=== PATIENT | male | born 1970 | race Caucasian/White ===

== ENCOUNTER 2018-09-12 09:27 | Inpatient (IN) ==
[2018-09-12] MEDS ORDERED: ALBUTEROL SULFATE 2.5 MG/3 ML NEBULIZER NEB PRN (10:11)
[2018-09-12] MEDS ORDERED: MAGNESIUM HYDROXIDE 30 ML ORAL.SUSP PO PRN (10:11)
[2018-09-12] MEDS ORDERED: ONDANSETRON 4 MG/2 ML VIAL IV PRN (10:11)
[2018-09-12] MEDS ORDERED: ACETAMINOPHEN 325 MG TABLET PO PRN (10:11)
[2018-09-12] MEDS ORDERED: NALOXONE HCL 0.4 MG/ML VIAL IV PRN (10:11)
--- NOTE | 2018-09-12 10:30 | Behavioral Health Consult ---
History of Present Illness Patient information: Note initiated : 09/12/18 at 10:28 am Service Date, if different from initiated Date: [] Patient: Tayo Ring 48 y/o M admitted on 09/12/18 for Inpatient Detox. Chief Complaint: [] Requesting Physician: Vikki Orozco Review of System Constitutional: no anorexia, no chills, no fatigue, no fever(s), no frequent falls, no headache(s), no night sweats, no weakness, no weight gain, no weight loss Nose, mouth and throat: no abnormal hearing, no change in voice, no dental pain, no dizziness, no epistaxis, no headache(s), no hoarseness, no nasal congestion, no neck pain, no odynophagia, no sinus pain, no sore throat, no vertigo Cardiovascular: no chest pain, no diaphoresis, no dyspnea, no leg edema, no palpatations, no pedal edema, no syncope Respiratory: no cough, no dyspnea, no hemoptysis, no wheezing Gastrointestinal: no abdominal pain, no bloating, no change in bowel habits, no coffee ground emesis, no constipation, no diarrhea, no heartburn, no hematemesis, no hematochezia, no nausea, no vomiting Genitourinary: no dysuria, no flank pain, no urinary frequency Musculoskeletal: no abnormal gait, no arthralgias, no back pain, no joint swelling, no myalgias, no numbness, no radiating pain into limb, no stiffness Integumentary: no changing lesions, no erythema, no lesions, no photosensitivity, no rash, no sores, no swelling Neurological: no abnormal gait, no abnormal hearing, no abnormal movements, no abnormal speech, no behavioral changes, no confusion, no focal weakness, no frequent falls, no headache(s), no memory loss, no numbness, no paresthesias, no syncope, no tremor(s), no vertigo, no weakness, no other visual disturbances Psychiatric: no abnormal sleep pattern, no anxiety, no auditory hallucinations, no change in appetite, no confusion, no depression, no hallucinations, no homicidal ideation, no memory loss, no suicidal ideation, no visual hallucinations, no tactile Endocrine: no cold intolerance, no polydipsia, no polyphagia Hematologic/Lymphatic: no easy bleeding, no easy bruising, no lymphadenopathy Allergic/Immunologic: no tongue swelling, no throat swelling, no lip swelling Past History Past medical history: Medical History (Last Updated 09/07/18 @ 13:34 by Marimar Bennett LPN) Gastritis, alcoholic (Chronic) Esophagitis (Chronic) Depression (Chronic) Alcohol abuse (Chronic) ADHD (Acute) Hypertension (Acute) Kidney problem (Acute) Panic disorder (Acute) Past surgical history: Past Surgical History No pertinent past surgical history (Acute) Past family history: Family History Grandfather CVA (cerebral vascular accident) Colon cancer Grandmother CVA (cerebral vascular accident) Mother Melanoma Hypertension Family/Other Breast cancer Other No pertinent family history Past social history: Social History (Last Updated 09/12/18 @ 09:14 by Carey Buckner DO) No Social History Section defined Medications and Allergies Home Medications Medication Instructions Recorded Confirmed Type omeprazole 20 mg capsule,delayed 20 mg PO QDAY #90 cap 09/29/16 09/12/18 Rx release Allergies Allergy/AdvReac Type Severity Reaction Status Date / Time No Known Drug Allergies Allergy Verified 09/12/18 08:13 Physical Examination Vital signs: Temp Pulse Resp BP Pulse Ox 98.8 F 104 H 15 162/110 95 09/12/18 09:27 09/12/18 09:27 09/12/18 09:27 09/12/18 09:27 09/12/18 09:27
--- NOTE | 2018-09-12 10:50 | Behavioral Health Consult ---
History of Present Illness Patient information: Note initiated : 09/12/18 at 10:31 am Service Date, if different from initiated Date: [] Patient: Tayo Ring 48 y/o M admitted on 09/12/18 for Inpatient Detox. Chief Complaint: [] Requesting Physician: Vikki Orozco History of present illness: Patient is a 48-year-old white male who reports a history of alcohol abuse since he was 12 years old. Patient recalls that he experienced immediate euphoria when he initially started drinking alcohol. 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 He reports drinking alcohol "pretty steady the rest of my life". He tried to control his drinking when he was but was not successful. Reports that eventually his left him after 24 years of marriage due to patient's alcohol use. For the last several years patient drinks 8-10 servings (unknown quantity) of vodka and black velvet. His last drink was at 9 PM last night. Patient reports having between 8-10 drinks of liquor last night unspecified amount. Patient's breathalyzer 0.140 this morning. Patient has entered treatment twice in the past. He recalls a 21-day residential treatment at [facility] in [place] but was not able to maintain sobriety after completion. The second time was a 2 months treatment in [place] in February 2018, and was also unsuccessful in maintaining sobriety. 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 He reports waking up in the middle of the night and needs him to drink alcohol as he wakes up in the middle of the night starting to feel withdrawal, anxiety, tremors. Once he starts drinking alcohol he is unable to control his use and is unable to stop until he is completely inebriated. Patient reports experiencing tremors and increase in anxiety if he attempts to stop alcohol on his own. Patient admits to history of benzodiazepine abuse. He states that recently her friend gave him her Ativan, unspecified amount, about the months ago 15 tablets that patient has been taking another to assist with his increased anxiety. He states he will drink alcohol on top of the Ativan. He denies use in the last 2 to 3 weeks. Admits to history of THC use, 3 to 4 days a week unspecified amount. Reports that in his 30s he used THC on a daily basis. Additionally reports history of smoking cigarettes since age 12, one ppd. Reports that he discontinued use of c igarettes and has been chewing over a can of tobacco a day. Denies use of methamphetamines. Admits to history of snorting unspecified amount of cocaine over the years. Reports his last use of cocaine was on 03/14/2019, "good [place] cocaine". Denies use of opioids including heroine, methadone or Suboxone. Denies use of LSD, PCP or MDMA. To occasional use of mushrooms over 20 years ago and denies recent use. Denies history of an overdose. Denies history of treatment with Vivitrol or naltrexone. Denies past history of pancreatitis, DTs or seizures. Admits to history of alcoholic hepatitis. Admits to history of blackouts. Denies history of trauma or abuse. Denies past psychiatric history. Denies any family history of alcohol or substance use disorder. Patient is he has a history of 2 legal problems secondary to his alcohol use, a DUI and the reckless driving charge. There is no legal problems pending at this time. Patient has requested treatment for alcohol use disorder and has agreed to be admitted for the purpose of alcohol withdrawal. Review of System Constitutional: no anorexia, no chills, no fatigue, no fever(s), no frequent falls, no headache(s), no night sweats, no weakness, no weight gain, no weight loss Nose, mouth and throat: no abnormal hearing, no change in voice, no dental pain, no dizziness, no epistaxis, no headache(s), no hoarseness, no nasal congestion, no neck pain, no odynophagia, no sinus pain, no sore throat, no vertigo Cardiovascular: no chest pain, no diaphoresis, no dyspnea, no leg edema, no palpatations, no pedal edema, no syncope Respiratory: no cough, no dyspnea, no hemoptysis, no wheezing Gastrointestinal: no abdominal pain, no bloating, no change in bowel habits, no coffee ground emesis, no constipation, no diarrhea, no heartburn, no hematemesis, no hematochezia, no nausea, no vomiting Genitourinary: no dysuria, no flank pain, no urinary frequency Musculoskeletal: no abnormal gait, no arthralgias, no back pain, no joint swelling, no myalgias, no numbness, no radiating pain into limb, no stiffness Integumentary: no changing lesions, no erythema, no lesions, no photosensitivity, no rash, no sores, no swelling Neurological: no abnormal gait, no abnormal hearing, no abnormal movements, no abnormal speech, no behavioral changes, no confusion, no focal weakness, no frequent falls, no headache(s), no memory loss, no numbness, no paresthesias, no syncope, no tremor(s), no vertigo, no weakness, no other visual disturbances Psychiatric: no abnormal sleep pattern, no anxiety, no auditory hallucinations, no change in appetite, no confusion, no depression, no hallucinations, no homicidal ideation, no memory loss, no suicidal ideation, no visual halluc inations, no tactile Endocrine: no cold intolerance, no polydipsia, no polyphagia Hematologic/Lymphatic: no easy bleeding, no easy bruising, no lymphadenopathy Allergic/Immunologic: no tongue swelling, no throat swelling, no lip swelling Past History Past medical history: Medical History (Last Updated 09/07/18 @ 13:34 by Marimar Bennett LPN) Gastritis, alcoholic (Chronic) Esophagitis (Chronic) Depression (Chronic) Alcohol abuse (Chronic) ADHD (Acute) Hypertension (Acute) Kidney problem (Acute) Panic disorder (Acute) Past surgical history: Past Surgical History No pertinent past surgical history (Acute) Past family history: Family History Grandfather CVA (cerebral vascular accident) Colon cancer Grandmother CVA (cerebral vascular accident) Mother Melanoma Hypertension Family/Other Breast cancer Other No pertinent family history Past social history: Social History (Last Updated 09/12/18 @ 09:14 by Carey Buckner DO) No Social History Section defined Medications and Allergies Home Medications Medication Instructions Recorded Confirmed Type omeprazole 20 mg capsule,delayed 20 mg PO QDAY #90 cap 09/29/16 09/12/18 Rx release Allergies Allergy/AdvReac Type Severity Reaction Status Date / Time No Known Drug Allergies Allergy Verified 09/12/18 08:13 Physical Examination Vital signs: Temp Pulse Resp BP Pulse Ox 98.8 F 104 H 15 162/110 95 09/12/18 09:27 09/12/18 09:27 09/12/18 09:27 09/12/18 09:27 09/12/18 09:27 General appearance: no acute distress, alert Eyes pulmonary: nonicteric ENT: oropharynx moist Neck: supple, no lymphadenopathy, no JVD Effort: normal Auscultation: bilateral: clear Percussion: bilateral: not dull Tactile fremitus: bilateral: normal Cardiovascular: regular rate and rhythm Gastrointestinal: normoactive bowel sounds, non-tender, non-distended Integumentary: normal Extremities: no cyanosis, no edema, pulses normal Musculoskeletal: no deformities, ROM normal Gait: normal gait normal mental status, non-focal exam, pupils equal and round, CN II-XII normal, motor strength normal and symmetric mood appropriate, affect normal CIWA 0 CINA 0 Results - Laboratory Findings Alcohol Toxicology: Breathalyzer 0.140 Assessment and Plan - Narrative A/P Narrative: Patient has been admitted to the hospital by Dr. Orozco. We will obtain lab work CBC CMP TSH. Patient will be started on thiamine as well as multivitamin. Patient will be placed on Valium protocol as needed CIWA score greater than 6. Patient will be closely monitored. Anticipate outpatient follow-up after completion of inpatient detox. Discussed risk recommendations for AA as well as IOP and individual counseling.
[2018-09-12] MEDS: NICOTINE 14 MG PATCH TOPICAL SCH (11:00)
--- NOTE | 2018-09-12 11:24 | Internal Med History&Physical ---
Medical - H&P: [facility] Patient information: Note initiated : 09/12/18 at 11:14 am Service Date, if different from initiated Date: [] Patient: Tayo Ring 48 y/o M admitted on 09/12/18 for Inpatient Detox. Chief Complaint: [] History of present illness: Mr. Ring is a 48 year old M with history of GERD, heavy alcohol use, presents to the hospital today, for elective alcohol detox. He has been through detox program before, and does have alcohol withdrawal with shakes. No h/o seizures. He has been followed by an credit card specialist who has requested his admission. Patient had his last drink last night at 9 PM, heavy alcohol, usually drinks 8 drinks a day according to him. No drinks this morning. He denies any headache chest pain shortness of breath, denies any abdominal pain denies any bowel bladder complaints denies any fever chills acute joint pain. Does have chronic back pain. All systems: reviewed and no additional remarkable complaints except as stated (as per HPI rest neg) Medical - H&P: PMH Medical history: Medical History (Last Updated 09/07/18 @ 13:34 by Marimar Bennett LPN) Gastritis, alcoholic (Chronic) Esophagitis (Chronic) Depression (Chronic) Alcohol abuse (Chronic) ADHD (Acute) Hypertension (Acute) Kidney problem (Acute) Panic disorder (Acute) Surgical history: Past Surgical History No pertinent past surgical history (Acute) Pertinent family history: Family History Grandfather CVA (cerebral vascular accident) Colon cancer Grandmother CVA (cerebral vascular accident) Mother Melanoma Hypertension Family/Other Breast cancer Other No pertinent family history Medical - H&P: Meds Home Medications Medication Instructions Recorded Confirmed Type omeprazole 20 mg capsule,delayed 20 mg PO QDAY #90 cap 09/29/16 09/12/18 Rx release Allergies Allergy/AdvReac Type Severity Reaction Status Date / Time No Known Drug Allergies Allergy Verified 09/12/18 08:13 Medical - H&P: Exam - Constitutional Vitals: Temp Pulse Resp BP Pulse Ox 98.8 F 104 H 15 162/110 95 09/12/18 09:27 09/12/18 09:27 09/12/18 09:27 09/12/18 09:27 09/12/18 09:27 Exam: Constitutional; Afebrile, cooperative, alert, not in distress. Eyes- No icterus, , No periorbital swelling Ears- Ext ear normal, hearing normal to conversation. Neck- Midline trachea, supple Respiratory system: Air Entry equal on both sides, No crackles or wheezing, no rhonchi. CVS- Rate rhythm regular, S1,S2 heard, no gallop, no rub. Abdomen- Soft nontender abdomen, no organomegaly, no tenderness, no guarding or rigidity, PRODUCTION ENGINEER- AOOx3, moving all extremities, no gross focal deficit noted. 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 Smokes marijuana 2-3 times per week. He has completed rehab for alcohol use disorder at [facility] in February 2018. He has been arrested for reckless driving, 1 year ago and DUI, 6 years ago both related to drinking alcohol.
[2018-09-12] MEDS: DIAZEPAM 5 MG TABLET PO PRN ×2 (12:38→18:15)
[2018-09-12] MEDS: 0.9 % SODIUM CHLORIDE 10 ML SYRINGE IV SCH ×2 (12:39→20:34)
[2018-09-12 13:24] LABS: Basophils # (Auto) 0 K/mcL (0.0-0.3); Basophils % (Auto) 0.5 % (0.0-2.0); Eosinophils # (Auto) 0 K/mcL (0.0-0.7); Eosinophils % (Auto) 0.3 % (0.0-7.0); Granulocytes % (Auto) 80.4 % (38.0-78.0); Hematocrit 42.8 % (41.0-55.0); Lymphocytes # (Auto) 0.6 K/mcL (1.5-4.8); Mean Cell Volume 102.8 fL (80.0-100.0); Mean Corpuscular HGB Conc 32.7 g/dL (31.0-36.0); Mean Platelet Volume 7.9 fL (7.4-10.4); Monocytes # (Auto) 0.5 K/mcL (0.1-0.9); Monocytes % (Auto) 8.8 % (1.0-12.0); Platelet Count 227 K/mcL (140-440); RBC 4.16 M/mcL (4.50-5.90); Red Cell Distribution Width 13.8 % (11.5-14.5); WBC 5.9 K/mcL (4.5-11.0)
[2018-09-12 13:38] LABS: Vitamin B12 1121 pg/ml (232-1245)
[2018-09-12 13:46] LABS: ALT/SGPT 36 U/l (0-40); AST/SGOT 94 U/l (0-37); Albumin 4.1 gm/dL (3.2-5.2); Albumin/Globulin Ratio 1.1 (1.0-2.3); Alkaline Phosphatase 115 U/L (39-117); Bilirubin,Total 0.7 mg/dL (0.0-1.0); Blood Urea Nitrogen 7 mg/dl (6-20); Calcium 8.5 mg/dl (8.6-10.4); Carbon Dioxide 26 mmol/L (22-30); Chloride 100 mmol/L (96-108); Globulin 3.9 gm/dL (2.2-3.7); Glomerular Filtration Rate 106; Glucose 100 mg/dL (70-105); Lipase 94 U/L (7-60); Potassium 3.2 mmol/L (3.3-5.1); Sodium 144 mmol/L (133-145); Thyroid Stimulating Hormone 1.07 uIU/ml (0.27-5.01)
[2018-09-12] MEDS ORDERED: POTASSIUM CHLORIDE 20 MEQ PACKET PO ONE (13:55)
[2018-09-12] MEDS: THIAMINE 100 MG TABLET PO SCH ×2 (14:29→20:32)
[2018-09-12] MEDS: HEPARIN 5,000 UNIT/ML VIAL SQ SCH (20:31)
[2018-09-12] MEDS: MIRTAZAPINE 15 MG TABLET PO SCH (20:32)
[2018-09-12] MEDS: MULTIVIT,THER IRON,CA,FA & MIN 1 TABLET PO SCH (20:32)
[2018-09-12] MEDS: GABAPENTIN 300 MG CAPSULE PO SCH (20:32)
[2018-09-13 05:56] LABS: Basophils # (Auto) 0 K/mcL (0.0-0.3); Basophils % (Auto) 0.5 % (0.0-2.0); Eosinophils # (Auto) 0.1 K/mcL (0.0-0.7); Eosinophils % (Auto) 2.3 % (0.0-7.0); Granulocytes % (Auto) 71.3 % (38.0-78.0); Hematocrit 44.5 % (41.0-55.0); Hemoglobin 14.8 g/dL (13.5-16.5); Lymphocytes % (Auto) 15.4 % (15.5-49.0); Mean Cell Volume 103.1 fL (80.0-100.0); Mean Corpuscular HGB Conc 33.2 g/dL (31.0-36.0); Mean Platelet Volume 8.3 fL (7.4-10.4); Monocytes # (Auto) 0.7 K/mcL (0.1-0.9); Monocytes % (Auto) 10.5 % (1.0-12.0); Platelet Count 244 K/mcL (140-440); RBC 4.31 M/mcL (4.50-5.90); Red Cell Distribution Width 14.3 % (11.5-14.5); WBC 6.2 K/mcL (4.5-11.0)
[2018-09-13 06:08] LABS: ALT/SGPT 32 U/l (0-40); AST/SGOT 87 U/l (0-37); Albumin 4.1 gm/dL (3.2-5.2); Alkaline Phosphatase 126 U/L (39-117); Bilirubin,Total 1.2 mg/dL (0.0-1.0); Blood Urea Nitrogen 9 mg/dl (6-20); Calcium 9.2 mg/dl (8.6-10.4); Carbon Dioxide 29 mmol/L (22-30); Chloride 97 mmol/L (96-108); Globulin 4.2 gm/dL (2.2-3.7); Glomerular Filtration Rate 101; Glucose 86 mg/dL (70-105); Lipase 95 U/L (7-60); Potassium 3.4 mmol/L (3.3-5.1); Sodium 143 mmol/L (133-145)
[2018-09-13 06:10] LABS: INR 1.1 (0.9-1.1); Prothrombin Time 13.8 sec (11.9-14.5)
[2018-09-13 06:20] LABS: Hepatitis B Surface Antibody NEGATIVE (NEGATIVE); Hepatitis B Surface Antigen NEGATIVE (NEGATIVE); Hepatitis C Virus Antibody NON REACTIVE (NEGATIVE)
[2018-09-13] MEDS: 0.9 % SODIUM CHLORIDE 10 ML SYRINGE IV SCH ×3 (06:25→20:45)
[2018-09-13] MEDS: OMEPRAZOLE 20 MG CAPSULE PO SCH (08:10)
[2018-09-13] MEDS: THIAMINE 100 MG TABLET PO SCH ×3 (08:10→20:46)
[2018-09-13] MEDS: HEPARIN 5,000 UNIT/ML VIAL SQ SCH ×2 (08:11→20:45)
[2018-09-13] MEDS: MULTIVIT,THER IRON,CA,FA & MIN 1 TABLET PO SCH ×2 (08:11→20:46)
[2018-09-13] MEDS: GABAPENTIN 300 MG CAPSULE PO SCH ×3 (08:11→20:46)
[2018-09-13] MEDS: POTASSIUM CHLORIDE 20 MEQ PACKET PO SCH ×2 (08:11→15:54)
[2018-09-13] MEDS ORDERED: amLODIPine 5 MG TABLET PO SCH (09:00)
[2018-09-13] MEDS: NICOTINE 14 MG PATCH TOPICAL SCH (09:33)
[2018-09-13] MEDS ORDERED: hydrOXYzine 25 MG TABLET PO PRN ×2 (09:55→13:04)
--- NOTE | 2018-09-13 11:00 | Internal Med Progress Note ---
Medical - PN: Subj Patient information: Note initiated : 09/13/18 at 10:57 am Service Date, if different from initiated Date: [] Patient: Tayo Ring 48 y/o M admitted on 09/12/18 for Inpatient Detox. Chief Complaint: [] - Constitutional Vitals: Vital Signs Temp Pulse Resp BP Pulse Ox 97.8 F 96 H 20 160/113 95 09/13/18 08:00 09/13/18 08:00 09/13/18 08:00 09/13/18 08:00 09/13/18 08:00 Period Temp Pulse Resp BP Sys/Tineo Pulse Ox Last 24 Hr 97.4 F-98.9 F 90-117 16-20 157-164/104-115 95-97 Intake and Output 09/12/18 09/13/18 09/13/18 21:59 05:59 13:59 Intake Total 120 200 480 Output Total 175 400 Balance -55 -200 480 Weight 174 lb 8 oz Intake & Output: Intake & Output 09/12/18 09/13/18 09/13/18 21:59 05:59 13:59 Intake Total 120 200 480 Output Total 175 400 Balance -55 -200 480 Weight 174 lb 8 oz Intake: Oral 120 200 480 Output: Void Amount 175 400 Other: Meal Dinner Breakfast Percent of Meal Consumed 50% 100% Feeding Ability Independent Independent Urine Appearance Clear Clear Urine Color Light Selene Light Selene Medical - PN: Obj Da - Labs CBC & Chem 7: 09/13/18 04:03 09/13/18 04:03 Labs: Abnormal Lab Results 09/13/18 09/13/18 09/12/18 04:03 04:03 11:03 RBC 4.31 L 4.16 L MCV 103.1 H 102.8 H MCH 34.2 H Gran % 80.4 H Lymph % (Auto) 15.4 L 10.0 L Lymph # (Auto) 1.0 L 0.6 L Potassium Anion Gap 17.0 H Calcium Total Bilirubin 1.2 H AST 87 H Alkaline Phosphatase 126 H Globulin 4.2 H Lipase 95 H 09/12/18 11:03 RBC MCV MCH Gran % Lymph % (Auto) Lymph # (Auto) Potassium 3.2 L Anion Gap 18.0 H Calcium 8.5 L Total Bilirubin AST 94 H Alkaline Phosphatase Globulin 3.9 H Lipase 94 H Meds: Medications Acetaminophen (Tylenol) 650 mg PO Q6HP PRN PRN Reason: PAIN/FEVER > 101 Albuterol Sulfate (Ventolin) 2.5 mg NEB Q2HP PRN PRN Reason: Shortness Of Breath Amlodipine Besylate (Norvasc) 5 mg PO DAILY [facility] Last Admin: 09/13/18 08:10 Dose: 5 mg Documented by: Clonidine HCl (Catapres) 0.1 mg PO Q2HP PRN PRN Reason: Hypertension Diazepam (Valium) 10 mg PO Q1HP PRN PRN Reason: Anxiety/Agitation Stop: 09/18/18 10:16 Last Admin: 09/12/18 18:15 Dose: 10 mg Documented by: Gabapentin (Neurontin) 300 mg PO TID [facility] Last Admin: 09/13/18 08:11 Dose: 300 mg Documented by: Heparin Sodium (Porcine) (Heparin) 5,000 unit SQ Q12 [facility] Last Admin: 09/13/18 08:11 Dose: 5,000 unit Documented by: Hydroxyzine HCl (Atarax) 25 mg PO Q4HP PRN PRN Reason: Anxiety/Agitation Iron Carb/Multivit/Banker Mason/Folic Acid (Multivitamin W/Minerals) 1 tab PO BID [facility] Stop: 09/17/18 09:01 Last Admin: 09/13/18 08:11 Dose: 1 tab Documented by: Magnesium Hydroxide (Milk Of Magnesia) 30 ml PO DAILYP PRN PRN Reason: Constipation Mirtazapine (Remeron) 15 mg PO HS [facility] Last Admin: 09/12/18 20:32 Dose: 15 mg Documented by: Naloxone HCl (Narcan) 0.1 mg IV Q2MIN PRN PRN Reason: Opiate Reversal Nicotine (Nicoderm) 14 mg TOPICAL DAILY@1000 [facility] Last Admin: 09/13/18 09:33 Dose: 14 mg Documented by: Omeprazole (Prilosec) 20 mg PO ACB [facility] Last Admin: 09/13/18 08:10 Dose: 20 mg Documented by: Ondansetron HCl (Zofran) 4 mg IV Q6HP PRN PRN Reason: Nausea And Vomiting Potassium Chloride (Klor-Con) 40 meq PO BIDD [facility] Stop: 09/13/18 16:01 Last Admin: 09/13/18 08:11 Dose: 40 meq Documented by: Sodium Chloride (Saline Flush) 10 ml IV Q8 [facility] Last Admin: 09/13/18 06:25 Dose: Not Given Documented by: Thiamine HCl (Vitamin B1) 100 mg PO TID [facility] Stop: 09/15/18 09:01 Last Admin: 09/13/18 08:10 Dose: 100 mg Documented by: Medical - PN: A/P - Time Spent With Patient Total time spent is greater than 50% in coordination of care (as documented) at patient's floor/unit and/or counseling patient: Medical - PN: Qual - VTE Deep Vein Thrombosis/Pulmonary Embolism Present on Admission: No
--- NOTE | 2018-09-13 11:05 | Internal Med Progress Note ---
Medical - PN: Subj Patient information: Note initiated : 09/13/18 at 11:02 am Service Date, if different from initiated Date: [] Patient: Tayo Ring 48 y/o M admitted on 09/12/18 for Inpatient Detox. Chief Complaint: [] Interval history: Patient is resting comfortably. Denies chest pain, SOB. Complains of mild abdominal pain w/o N&V. Denies cravings, depression. Mild anxiety. Reports mild b/l tremor upper extremities improving.Denies fever, chills. Pertinent ROS: Denies chest pain, SOB, fever/chills. Denies homicidal/suicidal ideation. - Constitutional Vitals: Vital Signs Temp Pulse Resp BP Pulse Ox 97.8 F 96 H 20 160/113 95 09/13/18 08:00 09/13/18 08:00 09/13/18 08:00 09/13/18 08:00 09/13/18 08:00 Period Temp Pulse Resp BP Sys/Tineo Pulse Ox Last 24 Hr 97.4 F-98.9 F 90-117 16-20 157-164/104-115 95-97 Intake and Output 09/12/18 09/13/18 09/13/18 21:59 05:59 13:59 Intake Total 120 200 480 Output Total 175 400 Balance -55 -200 480 Weight 174 lb 8 oz Intake & Output: Intake & Output 09/12/18 09/13/18 09/13/18 21:59 05:59 13:59 Intake Total 120 200 480 Output Total 175 400 Balance -55 -200 480 Weight 174 lb 8 oz Intake: Oral 120 200 480 Output: Void Amount 175 400 Other: Meal Dinner Breakfast Percent of Meal Consumed 50% 100% Feeding Ability Independent Independent Urine Appearance Clear Clear Urine Color Light Selene Light Selene - Eye Eye exam: Absent: conjunctival injection, nystagmus Pupils: Present: PERRL - Respiratory Respiratory exam: Present: normal respiratory exam. Absent: rales, respiratory distress, rhonchi - Cardiovascular Cardiovascular exam: Present: normal rate and rhythm - GI/Abdominal GI/Abdominal exam: Present: normal bowel sounds, tenderness (mild epigastric non-rebound) - Psychiatric Psychiatric exam: Present: anxious (mildly), normal mood. Absent: agitated, depressed, homicidal ideation, manic, suicidal ideation Medical - PN: Obj Da - Labs CBC & Chem 7: 09/13/18 04:03 09/13/18 04:03 Labs: Abnormal Lab Results 09/13/18 09/13/18 09/12/18 04:03 04:03 11:03 RBC 4.31 L 4.16 L MCV 103.1 H 102.8 H MCH 34.2 H Gran % 80.4 H Lymph % (Auto) 15.4 L 10.0 L Lymph # (Auto) 1.0 L 0.6 L Potassium Anion Gap 17.0 H Calcium Total Bilirubin 1.2 H AST 87 H Alkaline Phosphatase 126 H Globulin 4.2 H Lipase 95 H 09/12/18 11:03 RBC MCV MCH Gran % Lymph % (Auto) Lymph # (Auto) Potassium 3.2 L Anion Gap 18.0 H Calcium 8.5 L Total Bilirubin AST 94 H Alkaline Phosphatase Globulin 3.9 H Lipase 94 H Meds: Medications Acetaminophen (Tylenol) 650 mg PO Q6HP PRN PRN Reason: PAIN/FEVER > 101 Albuterol Sulfate (Ventolin) 2.5 mg NEB Q2HP PRN PRN Reason: Shortness Of Breath Amlodipine Besylate (Norvasc) 5 mg PO DAILY [facility] Last Admin: 09/13/18 08:10 Dose: 5 mg Documented by: Clonidine HCl (Catapres) 0.1 mg PO Q2HP PRN PRN Reason: Hypertension Diazepam (Valium) 10 mg PO Q1HP PRN PRN Reason: Anxiety/Agitation Stop: 09/18/18 10:16 Last Admin: 09/12/18 18:15 Dose: 10 mg Documented by: Gabapentin (Neurontin) 300 mg PO TID [facility] Last Admin: 09/13/18 08:11 Dose: 300 mg Documented by: Heparin Sodium (Porcine) (Heparin) 5,000 unit SQ Q12 [facility] Last Admin: 09/13/18 08:11 Dose: 5,000 unit Documented by: Hydroxyzine HCl (Atarax) 25 mg PO Q4HP PRN PRN Reason: Anxiety/Agitation Iron Carb/Multivit/[place]/Folic Acid (Multivitamin W/Minerals) 1 tab PO BID [facility] Stop: 09/17/18 09:01 Last Admin: 09/13/18 08:11 Dose: 1 tab Documented by: Magnesium Hydroxide (Milk Of Magnesia) 30 ml PO DAILYP PRN PRN Reason: Constipation Mirtazapine (Remeron) 15 mg PO HS [facility] Last Admin: 09/12/18 20:32 Dose: 15 mg Documented by: Naloxone HCl (Narcan) 0.1 mg IV Q2MIN PRN PRN Reason: Opiate Reversal Nicotine (Nicoderm) 14 mg TOPICAL DAILY@1000 [facility] Last Admin: 09/13/18 09:33 Dose: 14 mg Documented by: Omeprazole (Prilosec) 20 mg PO ACB [facility] Last Admin: 09/13/18 08:10 Dose: 20 mg Documented by: Ondansetron HCl (Zofran) 4 mg IV Q6HP PRN PRN Reason: Nausea And Vomiting Potassium Chloride (Klor-Con) 40 meq PO BIDD [facility] Stop: 09/13/18 16:01 Last Admin: 09/13/18 08:11 Dose: 40 meq Documented by: Sodium Chloride (Saline Flush) 10 ml IV Q8 [facility] Last Admin: 09/13/18 06:25 Dose: Not Given Documented by: Thiamine HCl (Vitamin B1) 100 mg PO TID [facility] Stop: 09/15/18 09:01 Last Admin: 09/13/18 08:10 Dose: 100 mg Documented by: - Impressions CIWA 2 - ABG Interpretation Interpretation: normal Additional comments: AST 87; ALT 32; mild hypokalemia Medical - PN: A/P - Time Spent With Patient Total time spent is greater than 50% in coordination of care (as documented) at patient's floor/unit and/or counseling patient: 15 - 24 minutes (1) Alcohol use disorder Status: Acute Current Visit: Yes (2) Alcohol withdrawal Status: Acute Current Visit: Yes (3) Hypertension Status: Acute Current Visit: Yes (4) Gastritis, alcoholic Status: Chronic Current Visit: No - Narrative A/P Narrative: Patient has received 20mg Valium; continue closely monitoring with CIWA scores and utilizing Valium protocol Medical - PN: Qual - VTE Deep Vein Thrombosis/Pulmonary Embolism Present on Admission: No
--- NOTE | 2018-09-13 11:49 | Internal Med Progress Note ---
Medical - PN: Subj Patient information: Note initiated : 09/13/18 at 11:45 am Service Date, if different from initiated Date: [] Patient: Tayo Ring 48 y/o M admitted on 09/12/18 for Inpatient Detox. Chief Complaint: [] Interval history: Mr. Ring is a 48 year old M with history of GERD, heavy alcohol use, presents to the hospital today, for elective alcohol detox. He has been through detox program before, and does have alcohol withdrawal with shakes. No h/o seizures. He has been followed by an solutions specialist who has requested his admission. Patient had his last drink last night at 9 PM, heavy alcohol, usually drinks 8 drinks a day according to him. No drinks this morning. He denies any headache chest pain shortness of breath, denies any abdominal pain denies any bowel bladder complaints denies any fever chills acute joint pain. Does have chronic back pain. 09/13 Patient seen and examined, no acute complaints or concerns. Was stable this morning tolerating p.o. diet well. His blood pressures have been high, he has been diagnosed with hypertension in the past but was not taking any medications. We will start him on amlodipine at this time, and as needed clonidine as needed. Patient is on p.o. Valium and protocol as per solutions specialist Labs reviewed shows mild elevation of total bilirubin AST, mild elevation of lipase, will just monitor this for now likely related to alcohol use Pertinent ROS: Denies headache, dizziness Denies chest pain, palpitations Denies cough or shortness of breath Denies abdominal pain, nausea or vomiting. - Constitutional Vitals: Vital Signs Temp Pulse Resp BP Pulse Ox 97.8 F 96 H 20 160/113 95 09/13/18 08:00 09/13/18 08:00 09/13/18 08:00 09/13/18 08:00 09/13/18 08:00 Period Temp Pulse Resp BP Sys/Tineo Pulse Ox Last 24 Hr 97.4 F-98.9 F 90-117 16-20 157-164/104-115 95-97 Intake and Output 09/12/18 09/13/18 09/13/18 21:59 05:59 13:59 Intake Total 120 200 480 Output Total 175 400 Balance -55 -200 480 Weight 174 lb 8 oz Intake & Output: Intake & Output 09/12/18 09/13/18 09/13/18 21:59 05:59 13:59 Intake Total 120 200 480 Output Total 175 400 Balance -55 -200 480 Weight 174 lb 8 oz Intake: Oral 120 200 480 Output: Void Amount 175 400 Other: Meal Dinner Breakfast Percent of Meal Consumed 50% 100% Feeding Ability Independent Independent Urine Appearance Clear Clear Urine Color Light Selene Light Selene Exam: Constitutional; Afebrile, cooperative, alert, not in distress. Respiratory system: Air Entry equal on both sides, No crackles or wheezing, no rhonchi. CVS- Rate rhythm regular, S1,S2 heard, no gallop, no rub. Abdomen- Soft nontender abdomen, no organomegaly, no tenderness, no guarding or rigidity, VENDOR SPECIALIST- AOOx3, moving all extremities, no gross focal deficit noted CIWAS scores less than 4 in the last 3 readings. Medical - PN: Obj Da - Labs CBC & Chem 7: 09/13/18 04:03 09/13/18 04:03 Labs: Abnormal Lab Results 09/13/18 09/13/18 09/12/18 04:03 04:03 11:03 RBC 4.31 L 4.16 L MCV 103.1 H 102.8 H MCH 34.2 H Gran % 80.4 H Lymph % (Auto) 15.4 L 10.0 L Lymph # (Auto) 1.0 L 0.6 L Potassium Anion Gap 17.0 H Calcium Total Bilirubin 1.2 H AST 87 H Alkaline Phosphatase 126 H Globulin 4.2 H Lipase 95 H 09/12/18 11:03 RBC MCV MCH Gran % Lymph % (Auto) Lymph # (Auto) Potassium 3.2 L Anion Gap 18.0 H Calcium 8.5 L Total Bilirubin AST 94 H Alkaline Phosphatase Globulin 3.9 H Lipase 94 H Meds: Medications Acetaminophen (Tylenol) 650 mg PO Q6HP PRN PRN Reason: PAIN/FEVER > 101 Albuterol Sulfate (Ventolin) 2.5 mg NEB Q2HP PRN PRN Reason: Shortness Of Breath Amlodipine Besylate (Norvasc) 5 mg PO DAILY [facility] Last Admin: 09/13/18 08:10 Dose: 5 mg Documented by: Clonidine HCl (Catapres) 0.1 mg PO Q2HP PRN PRN Reason: Hypertension Diazepam (Valium) 10 mg PO Q1HP PRN PRN Reason: Anxiety/Agitation Stop: 09/18/18 10:16 Last Admin: 09/12/18 18:15 Dose: 10 mg Documented by: Gabapentin (Neurontin) 300 mg PO TID [facility] Last Admin: 09/13/18 08:11 Dose: 300 mg Documented by: Heparin Sodium (Porcine) (Heparin) 5,000 unit SQ Q12 [facility] Last Admin: 09/13/18 08:11 Dose: 5,000 unit Documented by: Hydroxyzine HCl (Atarax) 25 mg PO Q4HP PRN PRN Reason: Anxiety/Agitation Iron Carb/Multivit/[place]/Folic Acid (Multivitamin W/Minerals) 1 tab PO BID [facility] Stop: 09/17/18 09:01 Last Admin: 09/13/18 08:11 Dose: 1 tab Documented by: Magnesium Hydroxide (Milk Of Magnesia) 30 ml PO DAILYP PRN PRN Reason: Constipation Mirtazapine (Remeron) 15 mg PO HS [facility] Last Admin: 09/12/18 20:32 Dose: 15 mg Documented by: Naloxone HCl (Narcan) 0.1 mg IV Q2MIN PRN PRN Reason: Opiate Reversal Nicotine (Nicoderm) 14 mg TOPICAL DAILY@1000 [facility] Last Admin: 09/13/18 09:33 Dose: 14 mg Documented by: Omeprazole (Prilosec) 20 mg PO ACB [facility] Last Admin: 09/13/18 08:10 Dose: 20 mg Documented by: Ondansetron HCl (Zofran) 4 mg IV Q6HP PRN PRN Reason: Nausea And Vomiting Potassium Chloride (Klor-Con) 40 meq PO BIDD [facility] Stop: 09/13/18 16:01 Last Admin: 09/13/18 08:11 Dose: 40 meq Documented by: Sodium Chloride (Saline Flush) 10 ml IV Q8 [facility] Last Admin: 09/13/18 06:25 Dose: Not Given Documented by: Thiamine HCl (Vitamin B1) 100 mg PO TID [facility] Stop: 09/15/18 09:01 Last Admin: 09/13/18 08:10 Dose: 100 mg Documented by: Medical - PN: A/P - Time Spent With Patient Total time spent is greater than 50% in coordination of care (as documented) at patient's floor/unit and/or counseling patient: - Narrative A/P Narrative: A/P Alcohol withdrawal -CIWA, Thiamine, Valium prn, as per bulk gas specialist -monitor on med surg status for now, if worsens will move to ICU -stable ciwa scores Hypertension, uncontrolled -start on amlodipine -prn clonidine GERD -resume omeprazole Hypokalemia -replace K Abnormal liver function test -due to etoh, monitor h/o Depression -not on meds at this time DVT hep sq Diet regular Full code Medical - PN: Qual - VTE Deep Vein Thrombosis/Pulmonary Embolism Present on Admission: No
[2018-09-13] MEDS: cloNIDine HCL 0.1 MG TABLET PO PRN ×2 (11:59→16:08)
[2018-09-13] MEDS: MIRTAZAPINE 15 MG TABLET PO SCH (20:46)
[2018-09-14 05:39] LABS: Basophils # (Auto) 0 K/mcL (0.0-0.3); Basophils % (Auto) 0.5 % (0.0-2.0); Eosinophils # (Auto) 0.2 K/mcL (0.0-0.7); Eosinophils % (Auto) 3.3 % (0.0-7.0); Granulocytes % (Auto) 71.1 % (38.0-78.0); Hematocrit 40.7 % (41.0-55.0); Hemoglobin 13.6 g/dL (13.5-16.5); Lymphocytes # (Auto) 1.1 K/mcL (1.5-4.8); Lymphocytes % (Auto) 15.7 % (15.5-49.0); Mean Cell Volume 102.8 fL (80.0-100.0); Mean Corpuscular HGB Conc 33.3 g/dL (31.0-36.0); Mean Platelet Volume 8.1 fL (7.4-10.4); Monocytes # (Auto) 0.6 K/mcL (0.1-0.9); Monocytes % (Auto) 9.4 % (1.0-12.0); Platelet Count 209 K/mcL (140-440); RBC 3.96 M/mcL (4.50-5.90); Red Cell Distribution Width 13.9 % (11.5-14.5); WBC 6.8 K/mcL (4.5-11.0)
[2018-09-14 06:13] LABS: ALT/SGPT 33 U/l (0-40); AST/SGOT 85 U/l (0-37); Albumin 3.8 gm/dL (3.2-5.2); Alkaline Phosphatase 112 U/L (39-117); Bilirubin,Total 1.1 mg/dL (0.0-1.0); Blood Urea Nitrogen 11 mg/dl (6-20); Calcium 9.9 mg/dl (8.6-10.4); Carbon Dioxide 28 mmol/L (22-30); Chloride 98 mmol/L (96-108); Globulin 3.8 gm/dL (2.2-3.7); Glomerular Filtration Rate 89; Glucose 119 mg/dL (70-105); Lipase 123 U/L (7-60); Potassium 3.6 mmol/L (3.3-5.1); Sodium 140 mmol/L (133-145)
[2018-09-14] MEDS: 0.9 % SODIUM CHLORIDE 10 ML SYRINGE IV SCH (06:28)
[2018-09-14] MEDS: OMEPRAZOLE 20 MG CAPSULE PO SCH (07:47)
[2018-09-14] MEDS ORDERED: IOPAMIDOL 100 ML BOTTLE IV ONE (08:25)
[2018-09-14] MEDS: THIAMINE 100 MG TABLET PO SCH (08:46)
[2018-09-14] MEDS: GABAPENTIN 300 MG CAPSULE PO SCH (08:46)
[2018-09-14] MEDS: HEPARIN 5,000 UNIT/ML VIAL SQ SCH (08:46)
[2018-09-14] MEDS: MULTIVIT,THER IRON,CA,FA & MIN 1 TABLET PO SCH (08:46)
--- NOTE | 2018-09-14 08:52 | Cat Scan Report ---
CLINICAL INFORMATION: Elevated lipase. Abnormal liver function tests COMPARISON: None. TECHNIQUE: Axial images were obtained through the abdomen and pelvis. Sagittally and coronally reformatted images. 80 mL injected intravenously. Oral contrast material was not administered FINDINGS: Lung bases are negative. No parenchymal infiltrate or mass. There is no pleural fluid. There is no pericardial fluid. Diffusely low-density liver consistent with hepatic steatosis. Liver is mildly enlarged. Liver measures 18 cm in maximum craniocaudal dimension. Liver contour is smooth. There is no ascites. There is no hepatic mass. Gallbladder is collapsed. No calcified gallstones. No dilated bile ducts. Spleen is not significantly enlarged. Spleen measures 12 cm maximally. Normal enhancement of splenic and portal veins. There is no recanalized umbilical vein. Pancreas is negative. There is no pancreatic mass. No peripancreatic abnormality. Pancreatic duct is not dilated. Negative adrenal glands. There is a cystic mass arising from the lower pole of the right kidney. This measures 7.3 x 5.7 x 8.5 cm. This is slightly irregular in contour. The wall is thin but enhances. No definite nodules identified. This is considered a Bosniak 2F lesion. MRI or ultrasound are recommended for further evaluation. No other renal lesions. No definite solid mass. There is no hydronephrosis. There is no hydroureter. Urinary bladder is normal. No calcified gallstones. There are scattered sigmoid diverticuli. There is mild pericolonic inflammatory change in the proximal sigmoid colon consistent with mild simple diverticulitis. There is no diverticular abscess. There is no pneumoperitoneum. There is no free intraperitoneal fluid. Colon is otherwise negative. No evidence for appendicitis. There is no mechanical small bowel obstruction. There is no retroperitoneal or mesenteric lymphadenopathy. Abdominal aorta is negative. No abdominal aortic aneurysm. Lumbar spine, sacrum, pelvis are negative IMPRESSION: 1. Hepatic steatosis. No hepatic mass. 2. Normal pancreas 3. Large cystic mass arising from the lower pole right kidney. This is considered a Bosniak 2F lesion 4. Mild simple sigmoid diverticulitis. The exam was performed using radiation dose optimization techniques including, but not limited to, automated exposure control, adjustment of the mA and/or kV according to patient size and use of iterative reconstruction technique. Interpreted and Authenticated by: Marco Reynoso 09/14/18
[2018-09-14] MEDS ORDERED: HYDROCHLOROTHIAZIDE 12.5 MG CAPSULE PO SCH (09:00)
[2018-09-14] MEDS ORDERED: amLODIPine 10 MG TABLET PO SCH (09:00)
[2018-09-14] MEDS: NICOTINE 14 MG PATCH TOPICAL SCH (09:53)
--- NOTE | 2018-09-14 09:56 | Internal Med Progress Note ---
Medical - PN: Subj Patient information: Note initiated : 09/14/18 at 9:54 am Service Date, if different from initiated Date: [] Patient: Tayo Ring 48 y/o M admitted on 09/12/18 for Inpatient Detox. Chief Complaint: [] Pertinent ROS: Patient appears in good spirits. Reports increase in appetite. Denies cravings. Denies depression, anxiety, tremors. Denies chest pain, SOB, abdominal pain, fever or chills. - Constitutional Vitals: Vital Signs Temp Pulse Resp BP Pulse Ox 96.7 F L 95 H 20 149/105 97 09/14/18 07:55 09/14/18 07:55 09/14/18 07:55 09/14/18 07:55 09/14/18 07:55 Period Temp Pulse Resp BP Sys/Tineo Pulse Ox Last 24 Hr 96.7 F-100.2 F 82-106 16-20 130-154/85-105 92-97 Intake and Output 09/13/18 09/14/18 09/14/18 21:59 05:59 13:59 Intake Total 1720 400 240 Output Total 375 700 Balance 1345 -300 240 Weight 176 lb Intake & Output: Intake & Output 09/13/18 09/14/18 09/14/18 21:59 05:59 13:59 Intake Total 1720 400 240 Output Total 375 700 Balance 1345 -300 240 Weight 176 lb Intake: Oral 1720 400 240 Output: Void Amount 375 700 Other: Meal Ice cream cup ice cream Breakfast Percent of Meal Consumed 100% 100% 100% Feeding Ability Independent Independent Independent Urine Appearance Clear Clear Urine Color Dark Selene Light Selene General appearance: cooperative, no acute distress - Cardiovascular Cardiovascular exam: Present: normal rate and rhythm - GI/Abdominal GI/Abdominal exam: Present: normal bowel sounds. Absent: distended, guarding, mass, rebound, tenderness - Psychiatric Psychiatric exam: Present: normal affect, normal mood. Absent: agitated, anxious, depressed, homicidal ideation, suicidal ideation Medical - PN: Obj Da - Labs CBC & Chem 7: 09/14/18 04:36 09/14/18 04:36 Labs: Abnormal Lab Results 09/14/18 09/14/18 09/13/18 04:36 04:36 04:03 RBC 3.96 L Hct 40.7 L MCV 102.8 H MCH 34.2 H Gran % Lymph % (Auto) Lymph # (Auto) 1.1 L Potassium Anion Gap 17.0 H Glucose 119 H Calcium Total Bilirubin 1.1 H 1.2 H AST 85 H 87 H Alkaline Phosphatase 126 H Globulin 3.8 H 4.2 H Lipase 123 H 95 H 09/13/18 09/12/18 09/12/18 04:03 11:03 11:03 RBC 4.31 L 4.16 L Hct MCV 103.1 H 102.8 H MCH 34.2 H Gran % 80.4 H Lymph % (Auto) 15.4 L 10.0 L Lymph # (Auto) 1.0 L 0.6 L Potassium 3.2 L Anion Gap 18.0 H Glucose Calcium 8.5 L Total Bilirubin AST 94 H Alkaline Phosphatase Globulin 3.9 H Lipase 94 H Meds: Medications Acetaminophen (Tylenol) 650 mg PO Q6HP PRN PRN Reason: PAIN/FEVER > 101 Albuterol Sulfate (Ventolin) 2.5 mg NEB Q2HP PRN PRN Reason: Shortness Of Breath Amlodipine Besylate (Norvasc) 10 mg PO DAILY [facility] Last Admin: 09/14/18 08:46 Dose: 10 mg Documented by: Clonidine HCl (Catapres) 0.1 mg PO Q2HP PRN PRN Reason: Hypertension Last Admin: 09/13/18 16:08 Dose: 0.1 mg Documented by: Gabapentin (Neurontin) 300 mg PO TID [facility] Last Admin: 09/14/18 08:46 Dose: 300 mg Documented by: Heparin Sodium (Porcine) (Heparin) 5,000 unit SQ Q12 [facility] Last Admin: 09/14/18 08:46 Dose: 5,000 unit Documented by: Hydrochlorothiazide ([place]) 12.5 mg PO DAILY [facility] Last Admin: 09/14/18 08:46 Dose: 12.5 mg Documented by: Hydroxyzine HCl (Atarax) 25 mg PO Q4HP PRN PRN Reason: Anxiety Iron Carb/Multivit/[place]/Folic Acid (Multivitamin W/Minerals) 1 tab PO BID [facility] Stop: 09/17/18 09:01 Last Admin: 09/14/18 08:46 Dose: 1 tab Documented by: Magnesium Hydroxide (Milk Of Magnesia) 30 ml PO DAILYP PRN PRN Reason: Constipation Mirtazapine (Remeron) 15 mg PO HS [facility] Last Admin: 09/13/18 20:46 Dose: 15 mg Documented by: Naloxone HCl (Narcan) 0.1 mg IV Q2MIN PRN PRN Reason: Opiate Reversal Nicotine (Nicoderm) 14 mg TOPICAL DAILY@1000 [facility] Last Admin: 09/14/18 09:53 Dose: 14 mg Documented by: Omeprazole (Prilosec) 20 mg PO ACB [facility] Last Admin: 09/14/18 07:47 Dose: 20 mg Documented by: Ondansetron HCl (Zofran) 4 mg IV Q6HP PRN PRN Reason: Nausea And Vomiting Sodium Chloride (Saline Flush) 10 ml IV Q8 [facility] Last Admin: 09/14/18 06:28 Dose: Not Given Documented by: Thiamine HCl (Vitamin B1) 100 mg PO TID [facility] Stop: 09/15/18 09:01 Last Admin: 09/14/18 08:46 Dose: 100 mg Documented by: Medical - PN: A/P - Time Spent With Patient Total time spent is greater than 50% in coordination of care (as documented) at patient's floor/unit and/or counseling patient: 25 - 35 minutes (1) Alcohol use disorder Status: Acute Current Visit: Yes (2) Alcohol withdrawal Status: Acute Current Visit: Yes (3) Hypertension Status: Acute Current Visit: Yes (4) Gastritis, alcoholic Status: Chronic Current Visit: No (5) Pancreatitis, acute Status: Acute Current Visit: Yes - Narrative A/P Narrative: CIWA 0 Last Valium 09/12/18 18:15 Patient improved and detox is complete. Counseled re sobriety. Patient's mother will be staying with patient upon discharge. Patient is to engage in AA as soon as he is discharged. Coordinate care with . Patient completed detox, will d/c Valium. Patient is being evaluated for pancreatitis and will be discharged once its safe to do so. Discussed with patient and he is in agreement. Will call in Gabape ntin and Remeron into patient's pharmacy. Blood pressure improved. Discussed with patient starting on Naltrexone following discharge. Discussed pros/cons/risk and benefit. Medical - PN: Qual - VTE Deep Vein Thrombosis/Pulmonary Embolism Present on Admission: No
--- NOTE | 2018-09-14 10:04 | Discharge Summary ---
Medical - DS: Prov Patient information: Note initiated : 09/14/18 at 9:55 am Service Date, if different from initiated Date: [] Patient: Tayo Ring 48 y/o M admitted on 09/12/18 for Inpatient Detox. Chief Complaint: [] Date of admission: 09/12/18 09:27 Discharge date: 09/14/18 Primary care physician: Dontrell Louis Consults: 09/12/18 10:11 Consult to Physician [CONS] Routine Comment: Consulting Provider: Carey Buckner Reason For Exam: Physician to Consult Discharging clinician: Vikki Orozco Medical - DS: Meds - Discharge Medications Prescriptions: amLODIPine [Norvasc] 10 mg PO DAILY #90 tab Hydrochlorothiazide [Oretic] 12.5 mg PO DAILY #90 cap Potassium Chloride [Kdur] 10 meq PO QAMCC #90 tab Active and Home Medications: Home Medications omeprazole 20 mg capsule,delayed release 20 mg PO QDAY #90 cap 09/29/16 [Rx Confirmed 09/12/18 Last Taken Unknown] Medical - DS: Hosp Hospital course: MMr. Ring is a 48 year old M with history of GERD, heavy alcohol use, presents to the hospital today, for elective alcohol detox. He has been through detox program before, and does have alcohol withdrawal with shakes. No h/o seizures. He has been followed by an yard specialist who has requested his admission. Patient had his last drink last night at 9 PM, heavy alcohol, usually drinks 8 drinks a day according to him. No drinks this morning. He denies any headache chest pain shortness of breath, denies any abdominal pain denies any bowel bladder complaints denies any fever chills acute joint pain. Does have chronic back pain. 09/13 Patient seen and examined, no acute complaints or concerns. Was stable this morning tolerating p.o. diet well. His blood pressures have been high, he has been diagnosed with hypertension in the past but was not taking any medications. We will start him on amlodipine at this time, and as needed clonidine as needed. Patient is on p.o. Valium and protocol as per yard specialist Labs reviewed shows mild elevation of total bilirubin AST, mild elevation of lipase, will just monitor this for now likely related to alcohol use 09/14 Patient seen and examined, no acute complaints or concerns. Has not required any Valium over the night. Reviewed the case with yard specialist and the patient is deemed stable for discharge. She will follow-up with the patient in 2 days. Labs reviewed patient does have elevated lipase that is creeping up slowly, LFT also shows elevated bilirubin. Patient has no abdominal pain and is tolerating p.o. diet very well. I got a CT scan of the abdomen which is showing an normal pancreas. He does have fatty liver. Of concern is a finding of a Bosniak 2F lesion on the right kidney, this needs further evaluation, according to the radiologist either by an MRI or ultrasound. I am making a referral for the patient to be followed up by urology for this is miguel. In Summary Patient admitted to the hospital as an elective admission for alcohol withdrawal, did not require much Valium, at the end of 3 days he is doing well and stable from alcohol withdrawal standpoint for discharge. The patient does have elevated blood pressures and I am starting him on amlodipine as well as hydrochlorothiazide with some potassium supplement. Patient does have a history of hypertension and has not been taking his medications. CT scan of the abdomen pelvis was done because of mildly elevated lipase levels, incidental finding was right kidney cyst Bosniak 2F, outpatient urology referral to be made at discharge Discharge diagnosis: Alcohol withdrawal - Time Spent with Patient Total time spent providing and/or coordinating discharge services: Greater than 30 minutes Medical - DS: Exam - Constitutional Vitals: Vital Signs Temp Pulse Resp BP Pulse Ox 09/14/18 07:55 96.7 F L 95 H 20 149/105 97 09/14/18 03:40 97.6 F 82 20 132/89 95 09/14/18 00:01 98.1 F 88 16 130/88 96 09/13/18 19:10 100.2 F H 106 H 20 130/85 92 09/13/18 16:00 99.2 F H 101 H 16 154/102 94 09/13/18 11:55 98.9 F 95 H 17 140/105 96 Intake and Output 09/13/18 09/14/18 09/14/18 21:59 05:59 13:59 Intake Total 1720 400 240 Output Total 375 700 Balance 1345 -300 240 Intake: Oral 1720 400 240 Output: Void Amount 375 700 Other: Meal Ice cream cup ice cream Breakfast Percent of Meal Consumed 100% 100% 100% Feeding Ability Independent Independent Independent Urine Appearance Clear Clear Urine Color Dark Selene Light Selene Weight 176 lb Additional comments: Constitutional; Afebrile, cooperative, alert, not in distress. Eyes- No icterus, , No periorbital swelling Ears- Ext ear normal, hearing normal to conversation. Neck- Midline trachea, supple Respiratory system: Air Entry equal on both sides, No crackles or wheezing, no rhonchi. CVS- Rate rhythm regular, S1,S2 heard, no gallop, no rub. Abdomen- Soft nontender abdomen, no organomegaly, no tenderness, no guarding or rigidity, [employer]- AOOx3, moving all extremities, no gross focal deficit noted. Medical - DS: Data Labs on day of discharge: Labs from last 24 hours 09/14/18 09/14/18 04:36 04:36 WBC 6.8 RBC 3.96 L Hgb 13.6 Hct 40.7 L MCV 102.8 H MCH 34.2 H MCHC 33.3 RDW 13.9 Plt Count 209 MPV 8.1 Gran % 71.1 Lymph % (Auto) 15.7 [place] % (Auto) 9.4 Eos % (Auto) 3.3 Baso % (Auto) 0.5 Gran # 4.8 Lymph # (Auto) 1.1 L [place] # (Auto) 0.6 Eos # (Auto) 0.2 Baso # (Auto) 0 Sodium 140 Potassium 3.6 Chloride 98 Carbon Dioxide 28 Anion Gap 14.0 BUN 11 Creatinine 1.0 GFR Calculation 89 Glucose 119 H Calcium 9.9 Total Bilirubin 1.1 H AST 85 H ALT 33 Alkaline Phosphatase 112 Total Protein 7.6 Albumin 3.8 Globulin 3.8 H Albumin/Globulin Ratio 1.0 Lipase 123 H Medical - DS: A/P - Patient/Caregiver Discharge Instructions Activity: increase activity as tolerated Diet: Regular Diet, Low Sodium (2gm) Additional Instructions: Follow a low-salt diet Follow-up with yard specialist in 2 days after clinic Follow-up with your primary care provider in 1 week for follow-up on your blood pressure. Your doctor may make changes to your home medications I would advise you talk to your doctor about getting the basic metabolic profile in 1 week to make sure elect lites are stable Follow-up with urology in 2 to 4 weeks for evaluation of the renal cyst Go to the emergency room if you notice fever chills seizures or any other acute concern - Follow up Plan Follow up with: Kodi Coleman MD [Physician] - Disposition: Home, Self-Care Prognosis: Good Rehab Potential: Good I certify that the patient requires SNF services: No Overall status at discharge: patient is progressing back to baseline Medical - DS: Qual - VTE Deep Vein Thrombosis/Pulmonary Embolism Present on Admission: No
[2018-09-14 15:51] LABS: Hepatitis B Core Antibody NON-REACTIVE (NON-REACTIVE)
[2018-09-18] MEDS ORDERED: hydrOXYzine 25 MG TABLET PO PRN (10:16)
== END 2018-09-14 14:15 | disposition home or self-care (01) | DRG 896 ==
LOC: MEDSUR 09:27
PROVIDERS: ADMIT Internal Medicine; ATTEND Internal Medicine

== ENCOUNTER 2021-05-18 12:28 | Inpatient (IN) ==
[2021-05-18] MEDS ORDERED: 0.9 % SODIUM CHLORIDE 1,000 ML IV ONE ×2 (12:51→16:49)
[2021-05-18 14:00] LABS: Basophils # (Auto) 0.08 K/mcL (0.00-0.30); Basophils % (Auto) 1.4 % (0.0-2.0); Eosinophils # (Auto) 0.04 K/mcL (0.00-0.70); Eosinophils % (Auto) 0.7 % (0.0-7.0); Hematocrit 37.3 % (40.1-51.0); Hemoglobin 12.4 g/dL (13.7-17.5); Lymphocytes # (Auto) 0.81 K/mcL (1.50-4.80); Lymphocytes % (Auto) 14.6 % (15.5-49.0); Mean Cell Volume 90.8 fL (80.0-100.0); Mean Corpuscular HGB Conc 33.2 g/dL (31.0-36.0); Mean Platelet Volume 9.7 fL (7.4-10.4); Monocytes # (Auto) 0.72 K/mcL (0.10-0.90); Neutrophils % (Auto) 70.3 % (38.0-78.0); Platelet Count 150 K/mcL (140-440); RBC 4.11 M/mcL (4.63-6.08); Red Cell Distribution Width 19.4 % (11.5-14.5); WBC 5.5 K/mcL (4.5-11.0)
[2021-05-18 14:12] LABS: ALT/SGPT 20 U/L (<40); AST/SGOT 87 U/L (<40); Albumin 2.6 gm/dL (3.2-5.2); Albumin/Globulin Ratio 0.5 (1.0-2.3); Alkaline Phosphatase 232 U/L (39-117); Bilirubin,Total 1.6 mg/dL (0.1-1.0); Blood Urea Nitrogen 12 mg/dL (6-20); Calcium 7.8 mg/dL (8.6-10.4); Carbon Dioxide 22 mmol/L (22-30); Chloride 100 mmol/L (96-108); Globulin 4.8 gm/dL (2.2-3.7); Glomerular Filtration Rate 70; Glucose 109 mg/dL (70-105)
[2021-05-18 14:22] LABS: INR 1.1 (0.9-1.1); Prothrombin Time 14.7 sec (11.9-14.5)
--- NOTE | 2021-05-18 14:27 | Emergency Department Note ---
Fall HPI General Chief Complaint: Fall Stated Complaint: head injury Time Seen by Provider: 05/18/21 12:34 Source: patient Mode of arrival: ambulatory Limitations: no limitations History of Present Illness HPI Narrative: Narrative: 51-year-old male presents the emerge department because of 3 chief complaints. #1 vomited bright red blood, about 3 teaspoons this morning. No injury or trauma prior to that. Patient is an alcoholic but has not vomited blood because of alcoholism before. #2. Patient tripped over a 2 x 6 beam night (3 days ago) complaining of numbness to the left side of his skull. Denies any loss of consciousness. Patient is not on any blood thinners but is an alcoholic so could be at increased risk of bleeding. Denies any headache. Sustained injuries to the face which are healing. #3. Fever patient was unaware of having a fever until he presented to the emergency department with a temperature of 100.4. The bright red blood started at 10 AM today. It was a single vomiting episode. Nothing made it better or worse. The symptom was acute and not constant. No prior similar. Not associated with lightheadedness. The fall left the patient with pain on the left side of his face which she rated as moderate. Constant. Nothing made it better or worse. Scabbed over with time. Radiation of numbness and tingling into the parietal scalp. No associated headache. Related Data Home Medications Medication Instructions Recorded Confirmed No Known Home Meds 05/18/21 05/18/21 Allergies Allergy/AdvReac Type Severity Reaction Status Date / Time No Known Drug Allergies Allergy Verified 05/18/21 12:32 Review of Systems ROS ROS Narrative: Narrative: Constitutional: Reports fever ENT ED: Denies throat pain or rhinorrhea Cardiovascular: Denies chest pain Respiratory: Reports shortness of breath Gastrointestinal: Denies abdominal pain Genitourinary: Denies dysuria Musculoskeletal: Denies back pain Integumentary: Denies rash Neurological: Reports paresthesias (Left parietal scalp decreased sensation); Denies headache Psychiatric: Reports anxiety and depression Hematological/Lymphatic: Denies easy bleeding Allergic/Immunologic: Reports other (Seasonal allergies) [facility] Narrative Patient History Narrative: Narrative: Medical/Surgical/Family History All Active Problems Acute upper gastrointestinal bleeding (Acute) Contusion of head (Acute) Fever (Acute) GI hemorrhage (Acute) Malaise (Acute) Alcoholic hepatitis (Acute) Diabetes mellitus (Acute) Folliculitis (Acute) Rosacea (Acute) Tinea capitis (Acute) Cluster headache (Acute) Jaundice (Acute) Lab test positive for detection of COVID-19 virus (Acute) Alcohol withdrawal (Chronic) Hypertension (Chronic) Pancreatitis, acute (Chronic) Acid reflux (Chronic) Pancreatitis (Chronic) Alcoholic hepatitis (Chronic) Hypomagnesemia (Chronic) COVID-19 (Chronic) Hypokalemia (Chronic) Decompensated hepatic cirrhosis (Chronic) Alcoholic cirrhosis (Chronic) Alcohol use disorder (Chronic) Hematuria (Chronic) Alcoholic pancreatitis (Chronic) Acute kidney injury (Chronic) Sleep apnea (Chronic) Alcohol withdrawal (Chronic) Jaundice (Chronic) Abnormal ultrasound of liver (Chronic) Alcoholism (Chronic ~1998) Elevated liver enzymes (Chronic) High cholesterol (Chronic) Gout (Chronic) Type 2 diabetes mellitus (Chronic) Anxiety (Chronic) Hypertension (Chronic ~2003) Gastritis, alcoholic (Chronic) Esophagitis (Chronic) Depression (Chronic) Alcohol abuse (Chronic) Medical History (Updated 05/18/21 @ 18:38 by Arthur Rodriguez MD) Abnormal ultrasound of liver Acid reflux Acute kidney injury ADHD Alcohol abuse Alcohol use disorder Alcohol withdrawal Alcoholic cirrhosis Alcoholic hepatitis Alcoholic pancreatitis Alcoholism (~1998) started about 1998, attempted to quit several times Anxiety COVID-19 Decompensated hepatic cirrhosis Depression Elevated liver enzymes Esophagitis Recorded 08/07/08 Gastritis, alcoholic Gout Hematuria High cholesterol Hypertension (~2003) Hypokalemia Hypomagnesemia Jaundice Kidney problem Pancreatitis Panic disorder Renal cyst, right see by urology 2019 Sleep apnea Type 2 diabetes mellitus Surgical History No pertinent past surgical history Family History Grandfather CVA (cerebral vascular accident) Colon cancer Grandmother CVA (cerebral vascular accident) Maternal Pancreatic cancer Maternal Mother Melanoma Hypertension Family/Other Breast cancer Arthritis Aunt Type II diabetes mellitus Aunt Brother Hypertension Social History Smoking Status: Smokeless tobacco Alcohol Intake Frequency: 2+ drinks per day Substance Use: marijuana Exam Narrative Narrative: Narrative: General Limitations: no limitations General appearance: Present alert and in distress Head Head: Present other (Abrasions about the face on the left side. Mild tenderness on the malar prominence left. No palpable/suspected fractures.) Eye Eye: Present EOMI; Absent nystagmus Neck Neck: Present normal inspection and trachea midline; Absent tenderness Respiratory Respiratory: Present normal lung sounds bilaterally; Absent respiratory distress Cardiovascular Cardiovascular: Present regular rate and tachycardia Adbominal Abdominal: Present soft; Absent tenderness Extremities Extremities: Present normal inspection Back Back: Present normal inspection Neurological Neurological: Present alert and oriented X3 Psychiatric Psychiatric: Present normal affect and normal mood Skin Skin: Present warm (WNL) and dry Course Vital Signs Vital signs: Vital Signs Temperature 100.4 F H 05/18/21 12:28 Pulse Rate 112 H 05/18/21 12:28 Respiratory Rate 18 05/18/21 12:28 Blood Pressure 180/110 05/18/21 12:28 Pulse Oximetry (%) 96 05/18/21 12:28 Temperature 99.1 F H 05/18/21 17:49 Pulse Rate 118 H 05/18/21 15:46 Respiratory Rate 17 05/18/21 18:01 Blood Pressure 160/115 05/18/21 18:01 Pulse Oximetry (%) 98 05/18/21 18:01 MDM MDM Narrative Medical decision making narrative: Narrative: Middle-age male presents emerged department with 3 complaints including bright red blood vomited up at 10 AM day of presentation of approximately 3 teaspoons full. Head injury post trip and fall 3 days ago. #3 febrile at triage 100.4. Differential diagnosis patient could have esophageal varices or gastritis or gastric ulcer or esophageal tear as a cause of the bleeding. Differential diagnosis on the fall includes subdural bleed epidural bleed, scalp contusion, abrasions of the face, facial fractures, skull fracture, other Differential diagnosis for fever includes viral illness, pneumonia, bacterial illness, urinary tract infection, cellulitis, influenza, Covid, other CT scan of the head did not reveal any acute intracranial pathology. Chest x- ray read by radiologist showed no acute pathology. White count was normal at 5.5. Hemoglobin was mildly low at 12.4. INR was 1.1 with a PT of 14.7. VBG lactic acid was 2.8 and a repeat was 2.1. Glucose was mildly elevated at 109. Total bilirubin was elevated at 1.6 though that is lower than previous values. AST was elevated 87 though that was half when it was 6 weeks ago. ALT was normal at 20 which was half of what it was on March 28, 2019 lipase was minimally elevated at 77. Case was discussed with Dr. Tovar in general surgeon. After reviewing the case with him he discussed the case further with the hospitalist. Together the hospitalist and this Dr. Tovar elected to admit the patient to the hospital for further observation and possible endoscopy tomorrow. Lab Data Result diagrams: 05/18/21 13:02 05/18/21 13:02 Labs: Lab Results 05/18/21 05/18/21 05/18/21 Range/Units 13:02 13:02 13:02 WBC 5.5 (4.5-11.0) K/mcL RBC 4.11 L (4.63-6.08) M/mcL Hgb 12.4 L (13.7-17.5) g/dL Hct 37.3 L (40.1-51.0) % MCV 90.8 (80.0-100.0) fL MCH 30.2 (26.0-34.0) pg MCHC 33.2 (31.0-36.0) g/dL RDW 19.4 H (11.5-14.5) % Plt Count 150 (140-440) K/mcL MPV 9.7 (7.4-10.4) fL Neut % (Auto) 70.3 (38.0-78.0) % Lymph % (Auto) 14.6 L (15.5-49.0) % [place] % (Auto) 13.0 H (1.0-12.0) % Eos % (Auto) 0.7 (0.0-7.0) % Baso % (Auto) 1.4 (0.0-2.0) % Lymph # (Auto) 0.81 L (1.50-4.80) K/mcL [place] # (Auto) 0.72 (0.10-0.90) K/mcL Eos # (Auto) 0.04 (0.00-0.70) K/mcL Baso # (Auto) 0.08 (0.00-0.30) K/mcL Absolute Neutrophils 3.88 (1.80-8.00) K/mcL PT (11.9-14.5) sec INR (0.9-1.1) VBG Lactic Acid 2.8 H (0.5-2.0) mmol/L Sodium 139 (133-145) mmol/L Potassium 3.4 (3.3-5.1) mmol/L Chloride 100 (96-108) mmol/L Carbon Dioxide 22 (22-30) mmol/L Anion Gap 17.0 H (8.0-16.0) BUN 12 (6-20) mg/dL Creatinine 1.2 (0.7-1.2) mg/dL GFR Calculation 70 Glucose 109 H (70-105) mg/dL Calcium 7.8 L (8.6-10.4) mg/dL Total Bilirubin 1.6 H (0.1-1.0) mg/dL AST 87 H (<40) U/L ALT 20 (<40) U/L Alkaline Phosphatase 232 H (39-117) U/L Total Protein 7.4 (5.9-8.4) gm/dL Albumin 2.6 L (3.2-5.2) gm/dL Globulin 4.8 H (2.2-3.7) gm/dL Albumin/Globulin Ratio 0.5 L (1.0-2.3) Lipase 77 H (7-60) U/L /09/03 Range/Units 13:02 WBC (4.5-11.0) K/mcL RBC (4.63-6.08) M/mcL Hgb (13.7-17.5) g/dL Hct (40.1-51.0) % MCV (80.0-100.0) fL MCH (26.0-34.0) pg MCHC (31.0-36.0) g/dL RDW (11.5-14.5) % Plt Count (140-440) K/mcL MPV (7.4-10.4) fL Neut % (Auto) (38.0-78.0) % Lymph % (Auto) (15.5-49.0) % [place] % (Auto) (1.0-12.0) % Eos % (Auto) (0.0-7.0) % Baso % (Auto) (0.0-2.0) % Lymph # (Auto) (1.50-4.80) K/mcL [place] # (Auto) (0.10-0.90) K/mcL Eos # (Auto) (0.00-0.70) K/mcL Baso # (Auto) (0.00-0.30) K/mcL Absolute Neutrophils (1.80-8.00) K/mcL PT 14.7 H (11.9-14.5) sec INR 1.1 (0.9-1.1) VBG Lactic Acid (0.5-2.0) mmol/L Sodium (133-145) mmol/L Potassium (3.3-5.1) mmol/L Chloride (96-108) mmol/L Carbon Dioxide (22-30) mmol/L Anion Gap (8.0-16.0) BUN (6-20) mg/dL Creatinine (0.7-1.2) mg/dL GFR Calculation Glucose (70-105) mg/dL Calcium (8.6-10.4) mg/dL Total Bilirubin (0.1-1.0) mg/dL AST (<40) U/L ALT (<40) U/L Alkaline Phosphatase (39-117) U/L Total Protein (5.9-8.4) gm/dL Albumin (3.2-5.2) gm/dL Globulin (2.2-3.7) gm/dL Albumin/Globulin Ratio (1.0-2.3) Lipase (7-60) U/L ED POC Tests ED POC Tests: TYESHA - SARS Antigen Negative Discharge Plan Patient/Caregiver Discharge Instructions Pt seen by RECORD CHANGER TESTER/PA only: No Clinical Impression: Acute upper gastrointestinal bleeding, Alcohol use disorder Contusion of head Qualifiers: Encounter type: initial encounter Contusion of head detail: periocular area Laterality: left Qualified Code(s): S00.12XA - Contusion of left eyelid and periocular area, initial encounter Fever Qualifiers: Fever type: unspecified Qualified Code(s): R50.9 - Fever, unspecified Patient Disposition: Xfer As Inpt ([facility]) Condition: Fair Discharge Date/Time: 05/18/21 16:05
[2021-05-18] MEDS ORDERED: LORazepam 2 MG/ML VIAL IV ONE (15:10)
--- NOTE | 2021-05-18 15:19 | General Surg History&Physical ---
HPI History of Present Illness Patient information: Note initiated : 05/18/21 at 3:13 pm Service Date, if different from initiated Date: [] Patient: Tayo Ring 51 y/o M admitted on for head injury. Chief Complaint: [] Chief complaint: Upper GI bleed History of present illness: Mr. Ring is a 51 year old M who presents with a fall 2 days ago, he attempted to detox himself from his chronic alcoholism approximately 1 week ago and had multiple episodes of nausea and dry heaves. Today he threw up bright red blood which she reports was approximately a tablespoon amount. He has not thrown up any further. He denies any dark or melanotic stools. He does have a history of alcohol abuse, he has seen Michelle Ellis in [facility] to assist with his alcohol problems. He has never undergone paracentesis or dialysis at this time. Review of Systems Review of systems: All systems are reviewed, negative other than above PFSH PFSH All Active Problems GI hemorrhage (Acute) Malaise (Acute) Alcoholic hepatitis (Acute) Diabetes mellitus (Acute) Folliculitis (Acute) Rosacea (Acute) Tinea capitis (Acute) Cluster headache (Acute) Jaundice (Acute) Lab test positive for detection of COVID-19 virus (Acute) Alcohol withdrawal (Chronic) Hypertension (Chronic) Pancreatitis, acute (Chronic) Acid reflux (Chronic) Pancreatitis (Chronic) Alcoholic hepatitis (Chronic) Hypomagnesemia (Chronic) COVID-19 (Chronic) Hypokalemia (Chronic) Decompensated hepatic cirrhosis (Chronic) Alcoholic cirrhosis (Chronic) Alcohol use disorder (Chronic) Hematuria (Chronic) Alcoholic pancreatitis (Chronic) Acute kidney injury (Chronic) Sleep apnea (Chronic) Alcohol withdrawal (Chronic) Jaundice (Chronic) Abnormal ultrasound of liver (Chronic) Alcoholism (Chronic ~1998) Elevated liver enzymes (Chronic) High cholesterol (Chronic) Gout (Chronic) Type 2 diabetes mellitus (Chronic) Anxiety (Chronic) Hypertension (Chronic ~2003) Gastritis, alcoholic (Chronic) Esophagitis (Chronic) Depression (Chronic) Alcohol abuse (Chronic) Medical History Abnormal ultrasound of liver Acid reflux Acute kidney injury ADHD Alcohol abuse Alcohol use disorder Alcohol withdrawal Alcoholic cirrhosis Alcoholic hepatitis Alcoholic pancreatitis Alcoholism (~1998) started about 1998, attempted to quit several times Anxiety COVID-19 Decompensated hepatic cirrhosis Depression Elevated liver enzymes Esophagitis Recorded 08/07/08 Gastritis, alcoholic Gout Hematuria High cholesterol Hypertension (~2004) Hypokalemia Hypomagnesemia Jaundice Kidney problem Pancreatitis Panic disorder Renal cyst, right see by urology 2019 Sleep apnea Type 2 diabetes mellitus Surgical History No pertinent past surgical history Family History Grandfather CVA (cerebral vascular accident) Colon cancer Grandmother CVA (cerebral vascular accident) Maternal Pancreatic cancer Maternal Mother Melanoma Hypertension Family/Other Breast cancer Arthritis Aunt Type II diabetes mellitus Aunt Brother Hypertension Social History marital status: occupational status: employed occupation: [employer] other: 2 children, 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 Smokes marijuana 2-3 times per week. He has completed rehab for alcohol use disorder at [facility] in February 2018. He has been arrested for reckless driving, 1 year ago and DUI, 6 years ago both related to drinking alcohol. MEDS/ALLERGIES Home Medications and Allergies Home Medications Medication Instructions Recorded Confirmed Type pantoprazole 40 mg tablet,delayed 40 mg PO QDAY 03/27/20 09/20/20 History release (Protonix) insulin syr/ndl U100 half angel 0.3 #100 each 04/12/20 09/20/20 Rx mL 30 gauge x 1/2" lancets 30 gauge and blood glucose #200 each 04/12/20 09/20/20 Rx strips combo pack metronidazole 0.75 % topical cream 1 applic TOPICAL BID #45 g 04/12/20 09/20/20 Rx pen needle, diabetic 31 gauge x #100 each 04/16/20 09/20/20 Rx 1/4" ([employer] [place]) chlordiazepoxide HCl 25 mg capsule 25 - 50 mg PO Q4-5H #20 cap 07/19/20 09/20/20 Rx ondansetron 4 mg disintegrating 4 mg PO Q8H PRN #20 tab 07/19/20 09/20/20 Rx tablet potassium chloride 20 mEq 40 meq PO QDAY #7 tab 07/19/20 09/20/20 Rx tablet,extended release acamprosate 333 mg tablet,delayed 333 mg PO TID #90 tab 07/24/20 09/20/20 Rx release ketoconazole 2 % shampoo 1 applic TOPICAL 2XW #120 ml 07/24/20 09/20/20 Rx blood-glucose transmitter (Dexcom #1 ea 08/06/20 09/20/20 Rx G6 Transmitter) blood-glucose meter,continuous #1 ea 08/07/20 09/20/20 Rx (Dexcom G6 [employer]) blood-glucose sensor (Dexcom G6 #3 ea 10/15/20 Rx Sensor) naltrexone 50 mg tablet 50 mg PO QDAY #30 tab 01/07/21 Rx venlafaxine 75 mg capsule,extended 75 mg PO QAM #30 cap 01/07/21 Rx release 24 hr (Effexor XR) Allergies Allergy/AdvReac Type Severity Reaction Status Date / Time No Known Drug Allergies Allergy Verified 05/18/21 12:32 Physical Examination Vital Signs Vital signs: Temp Pulse Resp BP Pulse Ox 100.4 F H 115 H 18 153/106 98 05/18/21 12:28 05/18/21 15:11 05/18/21 12:28 05/18/21 14:46 05/18/21 15:11 General physical appearance General physical exam: well developed, well nourished and no distress Eyes Eye exam: PERRL and normal ocular movement ENT ENT exam: normal pinna, normal nares, normal mucosa, no hearing loss and no congestion Head Head exam IM: Present normocephalic Head exam expanded IM: Present abrasion and contusion Neck Neck exam: no masses, no bruits, trachea midline, no lymphadenopathy and no venous distension Cardiovascular Cardiovascular exam IM: Present normal rate and rhythm Respiratory Respiratory exam: normal expansion, normal respiratory effort, clear to percussion and clear to auscultation Abdomen Abdomen: Present soft, non tender and bowel sounds Hernia: Present none Genitourinary Genitourinary (Male): Present normal penis with no external lesions Rectum Rectum: Present normal sphincter tone, no hemorrhoids, no tenderness, no masses and no bleeding Integumentary Integumentary: Present no rash, no growths and no abnormal pigmentation Neurologic Neurologic: Present normal coordination and normal sensation Musculoskeletal Musculoskeletal: Present normal gait and normal posture Psychiatric Psychiatric: Present oriented to time, oriented to person, oriented to place, speech is normal and memory intact Results Labs Result diagrams: 05/18/21 13:02 05/18/21 13:02 Labs: Abnormal lab results 05/18/21 05/18/21 05/18/21 Range/Units 13:02 13:02 13:02 RBC 4.11 L (4.63-6.08) M/mcL Hgb 12.4 L (13.7-17.5) g/dL Hct 37.3 L (40.1-51.0) % RDW 19.4 H (11.5-14.5) % Lymph % (Auto) 14.6 L (15.5-49.0) % [place] % (Auto) 13.0 H (1.0-12.0) % Lymph # (Auto) 0.81 L (1.50-4.80) K/mcL PT (11.9-14.5) sec VBG Lactic Acid 2.8 H (0.5-2.0) mmol/L Anion Gap 17.0 H (8.0-16.0) Glucose 109 H (70-105) mg/dL Calcium 7.8 L (8.6-10.4) mg/dL Total Bilirubin 1.6 H (0.1-1.0) mg/dL AST 87 H (<40) U/L Alkaline Phosphatase 232 H (39-117) U/L Albumin 2.6 L (3.2-5.2) gm/dL Globulin 4.8 H (2.2-3.7) gm/dL Albumin/Globulin Ratio 0.5 L (1.0-2.3) Lipase 77 H (7-60) U/L 05/18/21 Range/Units 13:02 RBC (4.63-6.08) M/mcL Hgb (13.7-17.5) g/dL Hct (40.1-51.0) % RDW (11.5-14.5) % Lymph % (Auto) (15.5-49.0) % [place] % (Auto) (1.0-12.0) % Lymph # (Auto) (1.50-4.80) K/mcL PT 14.7 H (11.9-14.5) sec VBG Lactic Acid (0.5-2.0) mmol/L Anion Gap (8.0-16.0) Glucose (70-105) mg/dL Calcium (8.6-10.4) mg/dL Total Bilirubin (0.1-1.0) mg/dL AST (<40) U/L Alkaline Phosphatase (39-117) U/L Albumin (3.2-5.2) gm/dL Globulin (2.2-3.7) gm/dL Albumin/Globulin Ratio (1.0-2.3) Lipase (7-60) U/L Diabetes panel 05/18/21 Range/Units 13:02 Sodium 139 (133-145) mmol/L Potassium 3.4 (3.3-5.1) mmol/L Chloride 100 (96-108) mmol/L Carbon Dioxide 22 (22-30) mmol/L BUN 12 (6-20) mg/dL Creatinine 1.2 (0.7-1.2) mg/dL Glucose 109 H (70-105) mg/dL Calcium 7.8 L (8.6-10.4) mg/dL AST 87 H (<40) U/L ALT 20 (<40) U/L Alkaline Phosphatase 232 H (39-117) U/L Total Protein 7.4 (5.9-8.4) gm/dL Albumin 2.6 L (3.2-5.2) gm/dL Calcium panel 05/18/21 Range/Units 13:02 Calcium 7.8 L (8.6-10.4) mg/dL Albumin 2.6 L (3.2-5.2) gm/dL Pituitary panel 05/18/21 Range/Units 13:02 Sodium 139 (133-145) mmol/L Potassium 3.4 (3.3-5.1) mmol/L Chloride 100 (96-108) mmol/L Carbon Dioxide 22 (22-30) mmol/L BUN 12 (6-20) mg/dL Creatinine 1.2 (0.7-1.2) mg/dL Glucose 109 H (70-105) mg/dL Calcium 7.8 L (8.6-10.4) mg/dL Adrenal panel 05/18/21 Range/Units 13:02 Sodium 139 (133-145) mmol/L Potassium 3.4 (3.3-5.1) mmol/L Chloride 100 (96-108) mmol/L Carbon Dioxide 22 (22-30) mmol/L BUN 12 (6-20) mg/dL Creatinine 1.2 (0.7-1.2) mg/dL Glucose 109 H (70-105) mg/dL Calcium 7.8 L (8.6-10.4) mg/dL Total Bilirubin 1.6 H (0.1-1.0) mg/dL AST 87 H (<40) U/L ALT 20 (<40) U/L Alkaline Phosphatase 232 H (39-117) U/L Total Protein 7.4 (5.9-8.4) gm/dL Albumin 2.6 L (3.2-5.2) gm/dL All other labs normal. A/P Assessment and plan (1) Alcoholic hepatitis: Status: Acute (2) Alcohol withdrawal: Status: Chronic Qualifiers: Complication of substance-induced condition: with unspecified complication Qualified Code(s): F10.239 - Alcohol dependence with withdrawal, unspecified (3) GI hemorrhage: Assessment and plan: This is a pleasant 51-year-old gentleman who presents today status post a fall, trauma work-up is essentially negative other than bruising around his face. He also reports bloody emesis today. Plan: Admit, serial H&H. I will add him on for an EGD tomorrow. Discussed with hospitalist assistance with alcohol withdrawal. Status: Acute Time Spent With Patient Time: Total time spent is greater than 50% in coordination of care (as documented) at patient's floor/unit and/or counseling patient:
--- NOTE | 2021-05-18 15:41 | XRay Report ---
HISTORY: Fever FINDINGS: The lungs are clear and well expanded. The heart size, mediastinum, beck and pleura are normal. IMPRESSION: Normal chest Interpreted and Authenticated by: Leodan Hull 05/18/21
--- NOTE | 2021-05-18 16:05 | Internal Medicine Consult Note ---
HPI Data of Consult Consult date: 05/18/21 Requesting physician: Randy Tovar Primary Care Provider: Prabhakar Gallegos MD Consult Narrative Patient Information: Note initiated : 05/18/21 at 3:59 pm Service Date, if different from initiated Date: [] Patient: Tayo Ring 51 y/o M who has a history of alcohol use disorder, diabetes mellitus, hypertension who presented to the emergency department after falling and hitting his forehead. The patient had a laceration over his left eyebrow. The patient also endorsed recent hematemesis about a tablespoon of blood after several days of retching. The patient has had difficulty with alcohol withdrawal recently and was trying to withdrawal at home but unsuccessful. In the ED, the patient's hemoglobin was stable and the patient did not have recurrent hematemesis. General surgery plans to admit the patient for monitoring. Hospital medicine was consulted for alcohol withdrawal. Chief Complaint: [] Chief complaint: Headache Reason for consult: Alcohol withdrawal cc:: CC: PFSH PFSH All Active Problems GI hemorrhage (Acute) Malaise (Acute) Alcoholic hepatitis (Acute) Diabetes mellitus (Acute) Folliculitis (Acute) Rosacea (Acute) Tinea capitis (Acute) Cluster headache (Acute) Jaundice (Acute) Lab test positive for detection of COVID-19 virus (Acute) Alcohol withdrawal (Chronic) Hypertension (Chronic) Pancreatitis, acute (Chronic) Acid reflux (Chronic) Pancreatitis (Chronic) Alcoholic hepatitis (Chronic) Hypomagnesemia (Chronic) COVID-19 (Chronic) Hypokalemia (Chronic) Decompensated hepatic cirrhosis (Chronic) Alcoholic cirrhosis (Chronic) Alcohol use disorder (Chronic) Hematuria (Chronic) Alcoholic pancreatitis (Chronic) Acute kidney injury (Chronic) Sleep apnea (Chronic) Alcohol withdrawal (Chronic) Jaundice (Chronic) Abnormal ultrasound of liver (Chronic) Alcoholism (Chronic ~1998) Elevated liver enzymes (Chronic) High cholesterol (Chronic) Gout (Chronic) Type 2 diabetes mellitus (Chronic) Anxiety (Chronic) Hypertension (Chronic ~2003) Gastritis, alcoholic (Chronic) Esophagitis (Chronic) Depression (Chronic) Alcohol abuse (Chronic) Medical History Abnormal ultrasound of liver Acid reflux Acute kidney injury ADHD Alcohol abuse Alcohol use disorder Alcohol withdrawal Alcoholic cirrhosis Alcoholic hepatitis Alcoholic pancreatitis Alcoholism (~1998) started about 1998, attempted to quit several times Anxiety COVID-19 Decompensated hepatic cirrhosis Depression Elevated liver enzymes Esophagitis Recorded 08/07/08 Gastritis, alcoholic Gout Hematuria High cholesterol Hypertension (~2003) Hypokalemia Hypomagnesemia Jaundice Kidney problem Pancreatitis Panic disorder Renal cyst, right see by urology 2019 Sleep apnea Type 2 diabetes mellitus Surgical History No pertinent past surgical history Family History Grandfather CVA (cerebral vascular accident) Colon cancer Grandmother CVA (cerebral vascular accident) Maternal Pancreatic cancer Maternal Mother Melanoma Hypertension Family/Other Breast cancer Arthritis Aunt Type II diabetes mellitus Aunt Brother Hypertension Social History marital status: occupational status: employed occupation: [employer] other: 2 children, 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 Smokes marijuana 2-3 times per week. He has completed rehab for alcohol use disorder at [facility] in February 2018. He has been arrested for reckless driving, 1 year ago and DUI, 6 years ago both related to drinking alcohol. MEDS/ALLERGIES Home Medications and Allergies Allergies Allergy/AdvReac Type Severity Reaction Status Date / Time No Known Drug Allergies Allergy Verified 05/18/21 12:32 EXAM Constitutional Vitals: Temp Pulse Resp BP Pulse Ox 100.4 F H 118 H 18 152/107 96 05/18/21 12:28 05/18/21 15:46 05/18/21 12:28 05/18/21 15:46 05/18/21 15:46 DATA Data Completed and Pending Labs: Labs from last 24 hours 05/18/21 05/18/21 05/18/21 13:02 13:02 13:02 WBC RBC Hgb Hct MCV MCH MCHC RDW Plt Count MPV Neut % (Auto) Lymph % (Auto) [place] % (Auto) Eos % (Auto) Baso % (Auto) Lymph # (Auto) [place] # (Auto) Eos # (Auto) Baso # (Auto) Absolute Neutrophils PT 14.7 H INR 1.1 VBG Lactic Acid 2.8 H Sodium 139 Potassium 3.4 Chloride 100 Carbon Dioxide 22 Anion Gap 17.0 H BUN 12 Creatinine 1.2 GFR Calculation 70 Glucose 109 H Calcium 7.8 L Total Bilirubin 1.6 H AST 87 H ALT 20 Alkaline Phosphatase 232 H Total Protein 7.4 Albumin 2.6 L Globulin 4.8 H Albumin/Globulin Ratio 0.5 L Lipase 77 H 05/18/21 13:02 WBC 5.5 RBC 4.11 L Hgb 12.4 L Hct 37.3 L MCV 90.8 MCH 30.2 MCHC 33.2 RDW 19.4 H Plt Count 150 MPV 9.7 Neut % (Auto) 70.3 Lymph % (Auto) 14.6 L [place] % (Auto) 13.0 H Eos % (Auto) 0.7 Baso % (Auto) 1.4 Lymph # (Auto) 0.81 L [place] # (Auto) 0.72 Eos # (Auto) 0.04 Baso # (Auto) 0.08 Absolute Neutrophils 3.88 PT INR VBG Lactic Acid Sodium Potassium Chloride Carbon Dioxide Anion Gap BUN Creatinine GFR Calculation Glucose Calcium Total Bilirubin AST ALT Alkaline Phosphatase Total Protein Albumin Globulin Albumin/Globulin Ratio Lipase A/P Narrative A/P Narrative: Assessment: 51-year-old male with history of alcohol use disorder, alcoholic liver cirrhosis, diabetes mellitus, hypertension admitted for monitoring after having one episode of hematemesis. The patient has been struggling with alcohol withdrawal for the last several days and trying to self medicate to ameliorate the symptoms. Hospital medicine was consulted for alcohol withdrawal. #Hematemesis #Alcohol withdrawal #Mild lactic acidosis #Diabetes mellitus #Hypertension #Alcoholic liver cirrhosis Plan -Monitoring for recurrent hematemesis, following hemoglobin. -CIWA protocol, Ativan IV as needed, vitamin supplementation. -IV fluid, repeat lactic acid. -Check hemoglobin A1c. -Correction insulin SSIlow. -Start Norvasc 5 mg daily. Time Spent With Patient Time: Total time spent is greater than 50% in coordination of care (as documented) at patient's floor/unit and/or counseling patient:
--- NOTE | 2021-05-18 16:23 | Cat Scan Report ---
History: Head injury, laceration over the left eyebrow, increasing headache TECHNIQUE: The brain was imaged without contrast in axial plane at 2.5 mm intervals. Sagittal and coronal reformats were created. The radiation exposure was limited using dose reduction technology. FINDINGS: There is soft tissue swelling over the left eyebrow and forehead. No foreign body is present. The visualized portion of the left orbit is normal without evidence of hematoma or orbital disruption. The visualized portions of the facial bones are normal. There is no skull fracture. Mild atrophy is present along the upper convexities of the frontal and parietal lobes. There is no intracranial hemorrhage. No infarct, edema or mass effect are present. The ventricles are normal in size. There is no abnormal extra-axial fluid collection. There is moderate to severe right sphenoid and milder left sphenoid sinusitis. There is also mild to moderate bilateral ethmoid and frontal sinusitis. Many of the right mastoid air cells are filled with fluid. Comparison with the prior brain MRI done on 02/26/20 shows no change in appearance of the brain. The sinusitis is worse at this time. IMPRESSION: Small scalp hematoma over the left eyebrow No skull fracture Mild cerebral atrophy. The brain is otherwise normal. Sinusitis Dr. Rodriguez was called with the report Interpreted and Authenticated by: Leodan Hull 05/18/21
[2021-05-18] MEDS ORDERED: POTASSIUM CHLORIDE 20 MEQ TABLET PO ONE (16:49)
[2021-05-18] MEDS ORDERED: DEXTROSE 31 GM ORAL.SUSP PO PRN (16:49)
[2021-05-18] MEDS ORDERED: DEXTROSE 50% 50 ML VIAL IV PRN (16:49)
[2021-05-18] MEDS: INSULIN LISPRO 1 UNIT/0.01 ML UNIT SQ SCH ×2 (17:14→20:42)
[2021-05-18] MEDS ORDERED: DEXTROSE 50% 50 ML SYRINGE IV PRN (17:30)
[2021-05-18] MEDS: LORazepam 2 MG/ML VIAL IV PRN ×2 (17:46→23:15)
[2021-05-18 19:19] LABS: Estimated Average Glucose(eAG) 105 mg/dL; Hemoglobin A1C 5.3 % Hgb (4.0-6.0)
[2021-05-18] MEDS ORDERED: LABETALOL 5 MG/ML ML IV PRN (20:14)
[2021-05-18] MEDS ORDERED: POTASSIUM CHLORIDE 20 MEQ in DEXTROSE 5% IN WATER 250 ML IV ONE (20:14)
[2021-05-18] MEDS: 0.9 % SODIUM CHLORIDE 10 ML SYRINGE IV SCH ×2 (20:43)
[2021-05-18] MEDS ORDERED: LABETALOL 5 MG/ML ML IV ONE (20:55)
[2021-05-18] MEDS ORDERED: POTASSIUM CHLORIDE 20 MEQ/10 ML VIAL IV ONE (21:37)
[2021-05-19] MEDS: LORazepam 2 MG/ML VIAL IV PRN (03:52)
[2021-05-19] MEDS: 0.9 % SODIUM CHLORIDE 10 ML SYRINGE IV SCH ×5 (03:53→20:00)
[2021-05-19] MEDS: ONDANSETRON 4 MG/2 ML VIAL IV PRN ×2 (03:53→10:22)
[2021-05-19] MEDS ORDERED: KETAMINE 50 MG/ML ML IV PRN (05:47)
[2021-05-19] MEDS ORDERED: PROPOFOL 200 MG/20 ML VIAL IV SCH (06:00)
[2021-05-19] MEDS ORDERED: MIDAZOLAM 2 MG/2 ML VIAL IV SCH (06:00)
[2021-05-19 07:08] LABS: ALT/SGPT 17 U/L (<40); AST/SGOT 70 U/L (<40); Albumin 2.3 gm/dL (3.2-5.2); Albumin/Globulin Ratio 0.5 (1.0-2.3); Alkaline Phosphatase 196 U/L (39-117); Bilirubin,Direct 1.3 mg/dL (<0.3); Bilirubin,Total 2.1 mg/dL (0.1-1.0); Blood Urea Nitrogen 10 mg/dL (6-20); Calcium 7.4 mg/dL (8.6-10.4); Carbon Dioxide 25 mmol/L (22-30); Chloride 103 mmol/L (96-108); Globulin 4.4 gm/dL (2.2-3.7); Glomerular Filtration Rate 87; Glucose 85 mg/dL (70-105); Lactate Dehydrogenase 231 U/L (135-225); Phosphorous 2.6 mg/dL (2.5-4.5); Triglycerides 153 mg/dL (<150); Uric Acid 7.6 mg/dL (2.5-8.0)
[2021-05-19] MEDS ORDERED: MAGNESIUM SULFATE 2 GM/50 ML BAG IV ONE (07:45)
[2021-05-19] MEDS ORDERED: PROPOFOL 200 MG/20 ML VIAL IV ONE (08:22)
[2021-05-19] MEDS ORDERED: MIDAZOLAM 2 MG/2 ML VIAL ONE (08:22)
--- NOTE | 2021-05-19 08:26 | EGD Procedure Note ---
EGD Procedure Notes Procedure Information Patient information: Note initiated : 05/19/21 at 8:24 am Service Date: 05/18/21 Patient: Tayo Ring 51 y/o M admitted on 05/18/21 for head injury. Pre-op diagnosis general: Upper GI bleed Post-Op Diagnosis general: Same Procedure: Esophagogastroduodenoscopy Procedure Narrative: After risk benefits and alternatives to the procedure were discussed with the patient at length he verbalized understanding and desire to continue with the procedure. Patient was taken to endoscopy. Surgical timeout was taken to verify patient an d procedure being performed sedation was administered with 160 mcg of propofol. An adult gastroscope was entered and advanced under direct vision into the second portion of the duodenum. The antrum was fully inspected, the scope was retroflexed in the stomach. Full examination revealed mild duodenitis, mild gastritis, no evidence of ulcer, no evidence of bleed. The GE junction was at 35 cm and the esophagus was normal on full exam, no evidence of esophageal varices. Patient tolerated procedure well. Assessment: Duodenitis, mild gastritis no evidence of ulcer or bleed.
[2021-05-19] MEDS: INSULIN LISPRO 1 UNIT/0.01 ML UNIT SQ SCH ×3 (09:28→15:35)
[2021-05-19] MEDS: MULTIVIT,THER IRON,CA,FA & MIN 1 TABLET PO SCH (09:33)
[2021-05-19] MEDS: THIAMINE 100 MG in 0.9 % SODIUM CHLORIDE 50 ML IV SCH (09:33)
[2021-05-19] MEDS: PANTOPRAZOLE 40 MG TABLET PO SCH (09:33)
[2021-05-19] MEDS: FOLIC ACID 1 MG TABLET PO SCH (09:33)
[2021-05-19] MEDS: amLODIPine 5 MG TABLET PO SCH (09:33)
[2021-05-19] MEDS ORDERED: chlordiazePOXIDE 25 MG CAPSULE PO PRN (10:34)
[2021-05-19] MEDS ORDERED: chlordiazePOXIDE 25 MG CAPSULE PO SCH ×3 (10:45→18:00)
[2021-05-19] MEDS ORDERED: LORazepam 2 MG/ML VIAL IV PRN (17:05)
--- NOTE | 2021-05-19 17:10 | Internal Med Progress Note ---
SUBJECTIVE Subjective Patient information: Note initiated : 05/19/21 at 5:06 pm Service Date, if different from initiated Date: [] Patient: Tayo Ring 51 y/o M admitted on 05/18/21 for head injury. Chief Complaint: [] Interval history: Tayo Ring 51 y/o M who has a history of alcohol use disorder, diabetes mellitus, hypertension who presented to the emergency department after falling and hitting his forehead. The patient had a laceration over his left eyebrow. The patient also endorsed recent hematemesis about a tablespoon of blood after several days of retching. The patient has had difficulty with alcohol withdrawal recently and was trying to withdrawal at home but unsuccessful. In the ED, the patient's hemoglobin was stable and the patient did not have recurrent hematemesis. General surgery plans to admit the patient for monitoring. Hospital medicine was consulted for alcohol withdrawal. 05/19 Patient is stable, no more episodes of hematemesis. EGD it was negative for evidence of recent bleeding, positive for duodenitis and mild gastritis, no peptic ulcers or esophageal varices. Patient is actively withdrawing from alcohol, wanted to go home earlier today so transition to oral Librium however the patient later decided he wanted to stay due to alcohol withdrawal symptoms. Transition back to Ativan IV as needed for alcohol withdrawal. Physical exam Head: Atraumatic, normal inspection. Eyes: normal appearance, no scleral icterus. Neck: full ROM Respiratory: no respiratory distress. Cardiovascular: normal rate and rhythm, S1, S2. GI/Abdominal: soft, nontender, no guarding. Extremities: full range of motion, nontender. Neurological: CN II-XII intact, intact motor, intact sensation. Psychiatric: Anxious and tremulous. Skin: warm, normal color Constitutional Vitals: Vital Signs Temp Pulse Resp BP Pulse Ox 98.7 F 98 H 16 146/98 99 05/19/21 16:01 05/19/21 08:35 05/19/21 16:01 05/19/21 16:01 05/19/21 16:07 Period Temp Pulse Resp BP Sys/Tineo Pulse Ox Last 24 Hr 97.9 F-99.8 F 98-118 14-28 129-170/88-125 93-99 Intake and Output 05/19/21 05/19/21 05/19/21 05:59 13:59 21:59 Intake Total 260 101 600 Output Total 325 1100 900 Balance -65 999 -300 Intake & Output: Intake & Output 05/19/21 05/19/21 05/19/21 05:59 13:59 21:59 Intake Total 260 101 600 Output Total 325 1100 900 Balance -65 -999 -300 Intake: IV 260 101 Potassium Chloride 20 Meq In 260 Dextrose 5% in Water 250 ml @ 130 mls/hr IV ONCE ONE Rx#: [id number] Vitamin B1 100 mg In Sodium 51 Chloride 0.9% 50 ml @ 50 mls/hr IV DAILY [facility] Rx#:[id number] Oral 0 600 Output: Void Amount 325 900 900 Emesis 200 Other: Meal Lunch Percent of Meal Consumed 75% Feeding Ability Independent Urine Appearance Clear Cloudy Clear Urine Color Dark Selene Red Brown Tea Colored Urine Odor Normal Normal OBJ DATA Labs CBC & Chem 7: 05/18/21 13:02 05/19/21 05:10 Labs: Abnormal Lab Results 05/19/21 05/18/21 05/18/21 05:10 17:13 13:02 RBC Hgb Hct RDW Lymph % (Auto) [place] % (Auto) Lymph # (Auto) PT 14.7 H VBG Lactic Acid 2.1 H Anion Gap Glucose Calcium 7.4 L Magnesium 1.1 L Total Bilirubin 2.1 H Direct Bilirubin 1.3 H GGT 811 H AST 70 H Alkaline Phosphatase 196 H Lactate Dehydrogenase 231 H Albumin 2.3 L Globulin 4.4 H Albumin/Globulin Ratio 0.5 L Triglycerides 153 H Lipase 05/18/21 05/18/21 05/18/21 13:02 13:02 13:02 RBC 4.11 L Hgb 12.4 L Hct 37.3 L RDW 19.4 H Lymph % (Auto) 14.6 L [place] % (Auto) 13.0 H Lymph # (Auto) 0.81 L PT VBG Lactic Acid 2.8 H Anion Gap 17.0 H Glucose 109 H Calcium 7.8 L Magnesium Total Bilirubin 1.6 H Direct Bilirubin GGT AST 87 H Alkaline Phosphatase 232 H Lactate Dehydrogenase Albumin 2.6 L Globulin 4.8 H Albumin/Globulin Ratio 0.5 L Triglycerides Lipase 77 H Meds: Medications Amlodipine Besylate (Amlodipine 5 Mg Tablet) 5 mg PO DAILY [facility] Last Admin: 05/19/21 09:33 Dose: 5 mg Documented by: Dextrose (Dextrose 50% 50 Ml Syringe) 0 ml IV UD PRN PRN Reason: Hypoglycemia Diagnostic Test (Pha) (Accu-Chek 1 Each Strip) 1 each FS ACHS [facility] Last Admin: 05/19/21 15:35 Dose: 1 each Documented by: Folic Acid (Folic Acid 1 Mg Tablet) 1 mg PO DAILY [facility] Last Admin: 05/19/21 09:33 Dose: 1 mg Documented by: Glucose (Dextrose 31 Gm Oral.Susp) 15 gm PO PRN PRN PRN Reason: Hypoglycemia Thiamine HCl 100 mg/ Sodium (Chloride) 51 mls @ 50 mls/hr IV DAILY [facility] Last Infusion: 05/19/21 11:00 Dose: Infused Documented by: Insulin Human Lispro (Insulin Lispro 1 Unit/0.01 Ml Unit) 0 unit SQ ACHS [facility]; Protocol Last Admin: 05/19/21 15:35 Dose: Not Given Documented by: Iron Carb/Multivit/[place]/Folic Acid (Multivit,Ther Iron,Ca,Fa & Min 1 Tablet) 1 tab PO DAILY [facility] Last Admin: 05/19/21 09:33 Dose: 1 tab Documented by: Labetalol HCl (Labetalol 5 Mg/Ml Ml) 10 mg IV Q10M PRN PRN Reason: Blood Pressure - High Last Admin: 05/18/21 20:55 Dose: 10 mg Documented by: Ondansetron HCl (Ondansetron 4 Mg/2 Ml Vial) 4 mg IV Q6HP PRN PRN Reason: Nausea And Vomiting Last Admin: 05/19/21 10:22 Dose: 4 mg Documented by: Pantoprazole Sodium (Pantoprazole 40 Mg Tablet) 40 mg PO QAMAC [facility] Last Admin: 05/19/21 09:33 Dose: 40 mg Documented by: Sodium Chloride (0.9 % Sodium Chloride 10 Ml Syringe) 10 ml IV Q8 [facility] Last Admin: 05/19/21 14:05 Dose: Not Given Documented by: A/P Narrative A/P Narrative: Assessment: 51-year-old male with history of alcohol use disorder, alcoholic liver cirrhosis, diabetes mellitus, hypertension admitted for monitoring after having one episode of hematemesis. The patient has been struggling with alcohol withdrawal for the last several days and trying to self medicate to ameliorate the symptoms. Hospital medicine was consulted for alcohol withdrawal. EGD was negative for peptic ulcer or esophageal varices, positive for duodenitis and gastritis. #Resolved hematemesis -EGD 05/19/2021 - negative for acute bleeding, positive for duodenitis and gastritis #Alcohol withdrawal #Hypertension #Alcoholic liver cirrhosis Plan -[facility] protocol, Ativan IV as needed, vitamin supplementation. -Replace electrolytes as needed. -Continue Norvasc 5 mg daily. -Continue Protonix 40 mg daily. -Regular diet -CODE STATUS: Full -Disposition: Inpatient versus residential treatment when alcohol withdrawal has resolved. Time Spent With Patient Time: Total time spent is greater than 50% in coordination of care (as documented) at patient's floor/unit and/or counseling patient: QUALITY VTE Deep Vein Thrombosis/Pulmonary Embolism Present on Admission: No
[2021-05-20] MEDS: 0.9 % SODIUM CHLORIDE 10 ML SYRINGE IV SCH ×2 (06:03→12:17)
[2021-05-20 07:09] LABS: ALT/SGPT 15 U/L (<40); AST/SGOT 64 U/L (<40); Albumin 2.4 gm/dL (3.2-5.2); Albumin/Globulin Ratio 0.6 (1.0-2.3); Alkaline Phosphatase 193 U/L (39-117); Bilirubin,Direct 1.6 mg/dL (<0.3); Bilirubin,Total 2.7 mg/dL (0.1-1.0); Blood Urea Nitrogen 14 mg/dL (6-20); Calcium 7.6 mg/dL (8.6-10.4); Carbon Dioxide 27 mmol/L (22-30); Chloride 96 mmol/L (96-108); Globulin 4.3 gm/dL (2.2-3.7); Glomerular Filtration Rate 63; Glucose 117 mg/dL (70-105); Lactate Dehydrogenase 237 U/L (135-225); Phosphorous 2.2 mg/dL (2.5-4.5); Triglycerides 94 mg/dL (<150)
[2021-05-20] MEDS ORDERED: MAGNESIUM SULFATE 2 GM/50 ML BAG IV ONE (07:49)
[2021-05-20] MEDS ORDERED: 0.9 % SODIUM CHLORIDE 1,000 ML IV ONE (07:50)
[2021-05-20] MEDS ORDERED: POTASSIUM CHLORIDE 20 MEQ TABLET PO ONE (07:51)
[2021-05-20] MEDS: MULTIVIT,THER IRON,CA,FA & MIN 1 TABLET PO SCH (08:21)
[2021-05-20] MEDS: amLODIPine 5 MG TABLET PO SCH (08:21)
[2021-05-20] MEDS: FOLIC ACID 1 MG TABLET PO SCH (08:21)
[2021-05-20] MEDS: PANTOPRAZOLE 40 MG TABLET PO SCH (08:21)
[2021-05-20] MEDS: THIAMINE 100 MG in 0.9 % SODIUM CHLORIDE 50 ML IV SCH (08:21)
[2021-05-20] MEDS ORDERED: chlordiazePOXIDE 25 MG CAPSULE PO PRN (10:35)
[2021-05-20] MEDS ORDERED: chlordiazePOXIDE 25 MG CAPSULE PO ONE (11:55)
--- NOTE | 2021-05-20 12:03 | Discharge Summary ---
Discharge Provider Provider Patient information: Note initiated : 05/20/21 at 12:01 pm Service Date, if different from initiated Date: [] Patient: Tayo Ring 51 y/o M admitted on 05/18/21 for head injury. Chief Complaint: [] Date of admission: 05/18/21 15:59 Discharge date: 05/20/21 Primary care physician: Prabhakar Gallegos MD Consults: 05/18/21 15:09 Consult to Physician [CONS] Routine Comment: impending ETOH withdraw Consulting Provider: Mane Benoit Reason For Exam: Physician to Consult Discharge Meds Discharge Medications Home Medications amlodipine 5 mg tablet 5 mg PO DAILY #60 tab 05/20/21 [Rx Last Taken Unknown] chlordiazepoxide HCl 25 mg capsule 25 mg PO BID 3 Days #5 cap 05/20/21 [Rx Last Taken Unknown] omeprazole magnesium 20 mg tablet,delayed release (Prilosec OTC) 20 mg PO QDAY 90 Days #90 tab 05/20/21 [Rx Last Taken Unknown] COURSE Hospital Course Hospital course: Tayo Ring 51 y/o M who has a history of alcohol use disorder, diabetes mellitus, hypertension who presented to the emergency department after falling and hitting his forehead. The patient had a laceration over his left eyebrow. The patient also endorsed recent hematemesis about a tablespoon of blood after several days of retching. The patient has had difficulty with alcohol withdrawal recently and was trying to withdrawal at home but unsuccessful. In the ED, the patient's hemoglobin was stable and the patient did not have recurrent hematemesis. General surgery plans to admit the patient for monitoring. Hospital medicine was consulted for alcohol withdrawal. 05/19 Patient is stable, no more episodes of hematemesis. EGD it was negative for evidence of recent bleeding, positive for duodenitis and mild gastritis, no peptic ulcers or esophageal varices. Patient is actively withdrawing from alcohol, wanted to go home earlier today so transition to oral Librium however the patient later decided he wanted to stay due to alcohol withdrawal symptoms. Transition back to Ativan IV as needed for alcohol withdrawal. 05/20 Alcohol withdrawal improved, the patient wanted to discharge home. Discharged home with a Librium taper. The patient says he wants to follow up with [facility] for alcohol use disorder, declined a referral to [facility]. Physical exam Head: Atraumatic, normal inspection. Eyes: normal appearance, no scleral icterus. Neck: full ROM Respiratory: no respiratory distress. Cardiovascular: normal rate and rhythm, S1, S2. GI/Abdominal: soft, nontender, no guarding. Extremities: full range of motion, nontender. Neurological: CN II-XII intact, intact motor, intact sensation. Psychiatric: Anxious and tremulous. Skin: warm, normal color Discharge diagnosis: Hematemesis Secondary discharge diagnosis: Alcohol use disorder Time Spent with Patient Time attestation: Total time spent providing and/or coordinating discharge services: EXAM Constitutional Vitals: Temp Pulse Resp BP Pulse Ox 98.7 F 98 H 13 140/99 95 05/20/21 08:01 05/19/21 08:35 05/20/21 10:14 05/20/21 10:01 05/20/21 10:14 Discharge Data Data Completed and Pending Labs on day of discharge: Labs from last 24 hours 05/20/21 05/19/21 05:09 05:10 Hgb 11.7 L Sodium 133 Potassium 3.3 Chloride 96 Carbon Dioxide 27 Anion Gap 10.0 BUN 14 Creatinine 1.3 H GFR Calculation 63 Glucose 117 H Uric Acid 7.0 Calcium 7.6 L Phosphorus 2.2 L Magnesium 1.5 L Total Bilirubin 2.7 H Direct Bilirubin 1.6 H GGT 833 H AST 64 H ALT 15 Alkaline Phosphatase 193 H Lactate Dehydrogenase 237 H Total Protein 6.7 Albumin 2.4 L Globulin 4.3 H Albumin/Globulin Ratio 0.6 L Triglycerides 94 Preliminary micro results at discharge 05/18/21 13:06 Blood Culture - Preliminary Blood 05/18/21 13:02 Blood Culture - Preliminary Blood Discharge Plan Patient/Caregiver Discharge Instructions Activity: increase activity as tolerated Diet: Regular Diet Instructions: Chlordiazepoxide (By mouth), Gastrointestinal Bleeding (GEN), Abuse of Alcohol (GEN), Alcohol Withdrawal (GEN), Upper Endoscopy (GEN) Prescriptions: New amlodipine 5 mg Tablet 5 mg PO DAILY Qty: 60 6RF omeprazole magnesium [Prilosec OTC] 20 mg tablet,delayed release (DR/EC) 20 mg PO QDAY 90 Days Qty: 90 0RF chlordiazepoxide HCl 25 mg capsule 25 mg PO BID 3 Days Qty: 5 0RF Rx Instructions: Take 1 tablets every six hours for the remainder of the day on 05/20/21, then 1 tablet every 12 hours on 05/21/21, then 1 tablet on 05/22/21. Follow Up Plan Follow up with: Prabhakar Gallegos MD [Primary Care Provider] - 05/23/21 1:00 pm Michelle Ellis ARNP [Nurse Practitioner] - 05/23/21 9:45 am Patient Disposition: Home, Self-Care Prognosis: Fair Overall status at discharge: patient is progressing back to baseline Discharge Orders: Discharge Order (Routine); Ordered 05/20/21 Ordered By: Mane NELSON VTE Deep Vein Thrombosis/Pulmonary Embolism Present on Admission: No
[2021-05-21] MEDS ORDERED: chlordiazePOXIDE 25 MG CAPSULE PO PRN (10:35)
[2021-05-22] MEDS ORDERED: chlordiazePOXIDE 25 MG CAPSULE PO PRN (10:35)
[2021-05-23] MEDS ORDERED: chlordiazePOXIDE 25 MG CAPSULE PO PRN (10:35)
== END 2021-05-20 14:17 | disposition home or self-care (01) | DRG 378 ==
LOC: ED 12:28 → ICU 15:59 → ED 16:05
PROVIDERS: ADMIT Surgery; ATTEND Surgery